=== PATIENT | male | born 1940 | race Caucasian/White ===

== ENCOUNTER → 2017-06-17 11:00 | Outpatient (CLI) | payer MEDICARE, OTHER ==
[2014-06-16 07:15] VITALS: BMI 28.5
[~2017-06-17 11:00] MED LIST: ASPIRIN EC81 M1 PO; BISOPROLOL-HCT1 EAC1 PO; GLIMEPIRIDE4 MG PO; JANUVIA100 MG PO; PLAVIX75 MG PO; THYROXINE PO
== END | disposition home or self-care (01) ==
LOC: D.CT 11:00
DX: Z87.891 Personal history of nicotine dependence (principal)

== ENCOUNTER → 2017-10-17 09:42 | Outpatient (CLI) | payer MEDICARE, OTHER ==
[2014-06-16 07:15] VITALS: BMI 28.5
== END | disposition home or self-care (01) ==
LOC: D.RT 09:42
DX: R93.8 Abnormal findings on diagnostic imaging of other specified body structures (principal); R06.09 Other forms of dyspnea; J44.9 Chronic obstructive pulmonary disease, unspecified

== ENCOUNTER → 2018-01-17 10:33 | Outpatient (CLI) | payer MEDICARE, OTHER ==
[2014-06-16 07:15] VITALS: BMI 28.5
[~2018-01-17 10:33] MED LIST changes: +HYDROCODON-ACE1 EAC7 PO; +TRAMADOL HCL E200 M1 PO
== END | disposition home or self-care (01) ==
LOC: D.CT 10:30
DX: R10.31 Right lower quadrant pain (principal)

== ENCOUNTER 2018-01-17 12:41 | Day surgery (SDC) | payer MEDICARE, OTHER ==
[~2018-01-17] VITALS: Ht 188 cm; Wt 95.9 kg
[~2018-01-17 12:41] MED LIST changes: -HYDROCODON-ACE1 EAC7 PO; -TRAMADOL HCL E200 M1 PO
[2018-01-17 13:30] VITALS: BP 173/101
[2018-01-17 13:39] LABS: BASOPHILS 0.1 % (0-2); EOSINOPHILS 0.1 % (0-7); HEMATOCRIT 38.3 % (42.0-54.0); HEMOGLOBIN 13.3 g/dL (13.5-17.5); IMMATURE GRANULOCYTES 0.3 % (0-5); LYMPHOCYTES 8.8 % (15-50); MCH 32.4 pg (26.0-34.0); MCHC 34.7 g/dL (31.0-37.0); MCV 93.2 fL (80.0-100.0); MEAN PLATELET VOLUME 9.7 fL (7.4-10.4); MONOCYTES 4.3 % (2-11); NEUTROPHILS 86.4 % (40-80); PLATELET COUNT 235 10x3/uL (130-400); RBC 4.11 10x6/uL (4.20-6.10); RDW 13.9 % (11.5-14.5); WBC 14.4 10x3/uL (4.8-10.8)
[2018-01-17 13:52] LABS: APTT 22.2 SECONDS (22.8-39.4); INR 1.09 (0.85-1.17); PROTIME 13.7 SECONDS (11.6-15.0)
[2018-01-17 13:54] LABS: ALBUMIN 3.6 g/dL (3.4-5.0); ANION GAP 14.6 mmol/L (8-16); BILIRUBIN - TOTAL 0.83 mg/dL (0.2-1.3); CALCIUM 8.8 mg/dL (8.5-10.1); CARBON DIOXIDE 23.1 mmol/L (21.0-32.0); CREATININE - SERUM 1.1 mg/dL (0.6-1.3); POTASSIUM - SERUM 3.7 mmol/L (3.5-5.1); PROTEIN - SERUM 7.5 g/dL (6.4-8.2)
[2018-01-17 14:47] VITALS: BP 156/92
[2018-01-17 15:12] VITALS: Ht 188 cm; Wt 95.9 kg
[2018-01-17] MEDS ORDERED: TRAMADOL HCL E200 M1 PO (16:03)
[2018-01-17] MEDS ORDERED: HYDROCODON-ACE1 EAC7 PO (20:27)
[2018-01-17 21:13] VITALS: BP 125/84
[2018-01-18 04:00] VITALS: BP 114/74
[2018-01-18 04:32] LABS: BASOPHILS 0.2 % (0-2); EOSINOPHILS 0.9 % (0-7); HEMATOCRIT 33.1 % (42.0-54.0); HEMOGLOBIN 11.1 g/dL (13.5-17.5); IMMATURE GRANULOCYTES 0.2 % (0-5); LYMPHOCYTES 19.8 % (15-50); MCH 31.8 pg (26.0-34.0); MCHC 33.5 g/dL (31.0-37.0); MCV 94.8 fL (80.0-100.0); MEAN PLATELET VOLUME 9.7 fL (7.4-10.4); MONOCYTES 5.4 % (2-11); NEUTROPHILS 73.5 % (40-80); PLATELET COUNT 198 10x3/uL (130-400); RBC 3.49 10x6/uL (4.20-6.10); RDW 14.3 % (11.5-14.5); WBC 11.2 10x3/uL (4.8-10.8)
[2018-01-18 04:44] LABS: CALC OSMOLALITY 278 mosm/kg (275-300); CALCIUM 7.4 mg/dL (8.5-10.1); CARBON DIOXIDE 24.3 mmol/L (21.0-32.0); CHLORIDE - SERUM 105 mmol/L (98-107); MAGNESIUM - SERUM 1.7 mg/dL (1.8-2.4); POTASSIUM - SERUM 3.8 mmol/L (3.5-5.1); SODIUM 138 mmol/L (136-145); UREA NITROGEN 12 mg/dL (7-18); eGFR NON AFRICAN AMERICAN 77 mL/min (90-120)
[2018-01-18 04:46] LABS: GLUCOSE 150 mg/dL (74-106)
== END 2018-01-18 10:23 | disposition home or self-care (01) ==
LOC: OBSVTIME → D.ER 12:41 → D.OPS 12:41 → OBSVTIME 14:23 → D.EDHOLD 14:23 → D.ER 14:23 → D.MS 14:23 → D.EDHOLD 14:29 → D.ER 14:52 → EDSTATUS 16:00 → D.MS 01-18 10:23 → D.OPS 01-18 10:23
PROVIDERS: Emergency Medicine; Surgery
DX: K35.80 Unspecified acute appendicitis (principal); E11.9 Type 2 diabetes mellitus without complications; Z79.84 Long term (current) use of oral hypoglycemic drugs; Z79.02 Long term (current) use of antithrombotics/antiplatelets; Z79.891 Long term (current) use of opiate analgesic; Z79.899 Other long term (current) drug therapy; Z01.812 Encounter for preprocedural laboratory examination

== ENCOUNTER → 2018-06-06 11:05 | Outpatient (CLI) | payer MEDICARE, OTHER ==
[2018-01-17 15:12] VITALS: BMI 27.1
[~2018-06-06 11:05] MED LIST changes: +HYDROCODON-ACE1 EAC7 PO; +TRAMADOL HCL E200 M1 PO
== END | disposition home or self-care (01) ==
LOC: D.CT 05-28 11:00
DX: R93.89 Abnormal findings on diagnostic imaging of other specified body structures (principal)

== ENCOUNTER 2018-07-23 06:32 | Outpatient (CLI) | payer MEDICARE, OTHER ==
[~2018-07-23] VITALS: Ht 188 cm; Wt 95.5 kg
[2018-07-23 07:20] LABS: BASOPHILS 0.4 % (0-2); EOSINOPHILS 4.5 % (0-7); HEMATOCRIT 39.6 % (42.0-54.0); HEMOGLOBIN 13.5 g/dL (13.5-17.5); IMMATURE GRANULOCYTES 0.3 % (0-5); LYMPHOCYTES 21.6 % (15-50); MCHC 34.1 g/dL (31.0-37.0); MCV 93.8 fL (80.0-100.0); MONOCYTES 7.2 % (2-11); RBC 4.22 10x6/uL (4.20-6.10); RDW 13.5 % (11.5-14.5); WBC 10.3 10x3/uL (4.8-10.8)
[2018-07-23 07:36] LABS: PLATELET COUNT 289 10x3/uL (130-400)
[2018-07-23 07:44] LABS: ANION GAP 15.7 mmol/L (8-16); CALCIUM 9.3 mg/dL (8.5-10.1); CARBON DIOXIDE 24.7 mmol/L (21.0-32.0); CREATININE - SERUM 1.2 mg/dL (0.6-1.3); POTASSIUM - SERUM 4.4 mmol/L (3.5-5.1)
[2018-07-23 08:00] LABS: APTT 24.2 SECONDS (22.8-39.4); INR 1.01 (0.85-1.17); PROTIME 12.8 SECONDS (11.6-15.0)
[2018-07-23] MEDS ORDERED: SYNTHROID137 MCG PO (08:09)
[2018-07-23 08:19] VITALS: BP 132/84; Ht 188 cm; Wt 95.5 kg
[2018-07-23] MEDS ORDERED: MULTI-DAY VITAM1 TAB PO (12:47)
[2018-07-23] MEDS ORDERED: GLUCOPHAGE500 MG PO (12:48)
[2018-07-23] MEDS ORDERED: GLUCOPHAGE1000 MG PO (12:48)
== END 2018-07-23 12:45 | disposition home or self-care (01) ==
LOC: D.SP 06:32 → D.CT 08:00 → D.SP 08:00 → D.CT 07-30 11:00
PROVIDERS: Anesthesiology; Radiology Diagnostic Radiology; ATTEND Internal Medicine Pulmonary Disease
DX: C34.12 Malignant neoplasm of upper lobe, left bronchus or lung (principal); Z01.812 Encounter for preprocedural laboratory examination

== ENCOUNTER 2018-07-24 09:50 | Day surgery (SDC) | payer MEDICARE, OTHER ==
[~2018-07-24] VITALS: Ht 188 cm; Wt 96.2 kg
[2018-07-24 06:16] VITALS: BP 120/74; Ht 188 cm; Wt 96.2 kg
[~2018-07-24 09:50] MED LIST changes: +GLUCOPHAGE1000 MG PO; +GLUCOPHAGE500 MG PO; +MULTI-DAY VITAM1 TAB PO; +SYNTHROID137 MCG PO
--- NOTE | 2018-07-24 10:12 | OP ---
PATIENT NAME: MARIA TERESA MCKEON JR MEDICAL RECORD: [id number] :41 LOCATION:D.OPS ADMISSION DATE: SURGEON: EDMUND PFEIFFER MD DATE OF OPERATION: 07/24/2018 SURGEON: Edmund Pfeiffer MD ANESTHESIA: TIVA by Reagan Muñoz CRNA. DIAGNOSIS: Elevated PSA of 4.74 on 05/26/2018. PROCEDURES: Cystoscopy, transrectal ultrasound, and prostate biopsy. FINDINGS: On cystoscopy, focal bulbar urethral stricture which was dilated with the scope. Nonobstructive lateral lobes of the prostate. Single ureteral orifices bilaterally with no bladder tumors. The transrectal ultrasound shows a 38.5-gram prostate size with internal prostatic stones. On digital rectal examination, the patient has a firm nodule in the left lateral prostate. SPECIMENS: Prostate biopsies. BLOOD LOSS: None. CLINICAL HISTORY: This is a 78-year-old male, who is being investigated for an elevated PSA of 4.74. He has minimal voiding symptoms, but since he is coming under anesthesia for a prostate biopsy, I will take advantage of the opportunity to perform cystoscopy to check on the prostatic anatomy urethrally. HE IS ALLERGIC TO COZAAR. 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 DESCRIPTION OF PROCEDURE: The patient was given IV sedation. He was then placed in the dorsal lithotomy position. Lidocaine jelly was inserted into the urethra. A 17-Lao cystoscope was used with a 30-degree lens for visualization. The penile urethra was clear until we hit the bulbar urethra. At that point, there was a focal urethral stricture. I managed to get past the stricture with the scope. The prostatic urethra is as described above. The bladder was then emptied through the scope and then the scope was removed. We then introduced the transrectal ultrasound probe. The prostate size was measured at 38.5 grams. Internal prostatic stones were seen. There is a focal nodule, which is visible in the left side. No hypoechoic lesions were seen. We then performed sextant biopsies with at least 3 cores from each sextant. Once we obtained all the cores, the procedure was terminated. I will see the patient in followup next week to review the pathology results with him. TRANSINT:[id number] Voice Confirmation ID: [id number] DOCUMENT ID: [id number] EDMUND PFEIFFER MD at 1012 CC: [id number] DICTATION DATE: 07/24/18818 SQUAD SERGEANT: 07/24/18 0954 [facility] 07/24/18 [facility] [address] [place] [address]
== END 2018-07-24 09:51 | disposition home or self-care (01) ==
LOC: D.OPS 09:50
PROVIDERS: ATTEND Urology
DX: C61 Malignant neoplasm of prostate (principal); Z01.812 Encounter for preprocedural laboratory examination

== ENCOUNTER → 2018-08-05 09:08 | Outpatient (CLI) | payer MEDICARE, OTHER ==
[2018-07-24 06:16] VITALS: BMI 27.2
== END | disposition home or self-care (01) ==
LOC: D.NM 09:08
PROVIDERS: ATTEND Internal Medicine Pulmonary Disease
DX: C61 Malignant neoplasm of prostate (principal); C34.90 Malignant neoplasm of unspecified part of unspecified bronchus or lung

== ENCOUNTER → 2018-08-11 15:13 | Outpatient (CLI) | payer MEDICARE, OTHER ==
[2018-07-24 06:16] VITALS: BMI 27.2
== END | disposition home or self-care (01) ==
LOC: D.MRI 15:13
PROVIDERS: ATTEND Internal Medicine Hematology & Oncology
DX: C34.91 Malignant neoplasm of unspecified part of right bronchus or lung (principal); C61 Malignant neoplasm of prostate

== ENCOUNTER → 2018-08-21 05:08 | Day surgery (SDC) | payer MEDICARE, OTHER ==
[~2018-08-21] VITALS: Ht 188 cm; Wt 97.7 kg
--- NOTE | ~2018-08-21 | OP ---
PATIENT NAME: MARIA TERESA MCKEON JR MEDICAL RECORD: [id number] :41 LOCATION:D.OPS ADMISSION DATE: SURGEON: CONSUELO PETER MD DATE OF OPERATION: 08/21/2018 PROCEDURE: EGD with biopsy, colonoscopy with biopsy, colonoscopy with polypectomy. HEEL BLACKER: Consuelo Peter MD SCOPE: Olympus video colonoscope and Olympus video gastroscope. MEDICATIONS: Per TIVA anesthesia. The patient received 500 mg of propofol for both procedures, O2 of 4 liters. INDICATION FOR THE PROCEDURE: The patient has had a CT-guided biopsy of a lung mass in the right upper lobe with the path report significant for adenocarcinoma. Additionally, he has had a new finding of prostate cancer. His CEA level is 88.9. His PSA is 6.7. The pathology on the lung mass was sent to [facility] and they feel that the lung mass special studies are indicative for a colon primary. The patient's last colonoscopy was in 2018, which was fairly unremarkable. We are repeating this test today looking for any evidence of colonic malignancy. EGD FINDINGS: Informed consent was given. The patient was made comfortable with the above medications. After reaching an adequate level of sedation by slow IV push, the patient was placed on his left side. The endoscope was then advanced under direct visualization through the posterior pharyngeal area and advanced to the distal esophagus. Only minimal inflammation was noted at the gastroesophageal junction. A nonstenotic Schatzki's ring was also seen and the patient has a very small hiatal hernia, which was noted on both direct and retroflex views. Biopsies were taken at the gastroesophageal junction. We then advanced the scope into the gastric area and immediately retroflexed, which revealed again the presence of the small hiatal hernia. At the junction of the gastric cardia to the distal esophagus on retroflex view some inflammation was appreciated and biopsies were obtained. No ulcers or erosions were noted. We then proceeded through the stomach body to the antral area where only minimal inflammation was appreciated. A biopsy was taken at the antral area looking for the presence of Helicobacter pylori. No ulcers or erosions were noted throughout the entire stomach nor were they seen in the distal esophagus. On entering the duodenal bulb, some mild inflammation was appreciated. Biopsies were taken. We then advanced the scope into the second portion of the duodenum where an area of raised inflammation was appreciated and biopsies were obtained. The scope was then withdrawn. IMPRESSION: 1. Mild inflammation in the distal esophageal area, biopsies taken. 2. Nonstenotic Schatzki's ring. 3. Small hiatal hernia. 4. Biopsies taken at the junction of the distal esophagus to the gastric cardia on retroflexed view of some mild inflammation with associated erythema and edema. OPERATIVE REPORT [id number] MARIA TERESA MCKEON SYED Jeong 5. Mild inflammation throughout the entire gastric mucosa, which was examined and no ulcers or erosions seen. Biopsy taken at the antral area looking for the presence of Helicobacter pylori. 6. Mild inflammation in the duodenal bulb, biopsied. No ulcers, no erosions. 7. Raised nodule in the second part of the duodenum, both photo documentation and biopsy obtained. Second part of the duodenum mucosa with mild inflammation only. COLONOSCOPY WITH BIOPSY, COLONOSCOPY WITH POLYPECTOMY: After completion of the EGD, the patient was again positioned on his left side and medications were adjusted for his comfort and safety. The colonoscope was then advanced to the cecum where the ileocecal valve and appendiceal orifice were identified. It should be mentioned that the prep was not very effective. 1. The patient had copious amount of stool throughout the entire colon. This was most pronounced; however, on the left side of the colon and much attention was spent washing the colon mucosa. 2. The cecum with ileocecal valve and appendiceal orifice as well as the terminal ileum was identified. The small bowel was intubated and the terminal ileum had copious amount of nodularity noted. This was most likely a normal finding, but biopsies were obtained to be thorough. The appendiceal orifice had some raised tissue. It should be noted that the patient had an appendectomy in [address] LUIS Cruz due to an acute appendicitis. We took a small biopsy in the appendiceal orifice of some raised mildly inflamed inflammation. The ileocecal valve in this area had one small 0.5 cm polyp, which was removed with hot biopsy forcep technique. We then explored the ascending colon, which had fairly normal tissue throughout and then proceeded to the transverse colon where at 75 cm, a very small polyp 0.25 cm was appreciated and this was removed with hot biopsy forceps technique. The scope then was further withdrawn into the descending colon where fairly normal tissue was noted. In the sigmoid colon, some mild inflammation was noted and biopsies were obtained. At the distal sigmoid area, a polyp was noted that was 0.5 cm in size and this was carefully removed with hot biopsy forcep technique and sent to pathology for review. This was at 15 cm within the colon. Within the rectum, 2 small polyps, both 0.5 cm in size, were seen and also removed with hot biopsy forcep technique. The patient had mild diverticulosis within the left side of the colon and no evidence of diverticulitis was appreciated. On retroflexion, the patient was seen to have both internal hemorrhoids and on final withdrawal of the scope, external hemorrhoids were seen. The patient tells me that he performed a couple enemas the morning of the procedure, prior to coming to the hospital and he had areas of marked inflammation and congestion at 15 cm within the colon in the distal sigmoid area and again within the rectum. Photodocumentation was obtained. The small biopsy that was taken in the distal sigmoid area was at the same area of inflammation. The scope was then withdrawn. IMPRESSION: 1. Colonoscope advanced through the rectum and we proceeded to the cecum where the ileocecal valve and appendiceal orifice were identified. Photo documentation was obtained. The small bowel was intubated and biopsies were taken of some nodularity in this area. 2. Small polyp on the ileocecal valve, 0.5 cm in size, removed with hot biopsy OPERATIVE REPORT [id number] MARIA TERESA MCKEON forcep technique. 3. Minimal inflammation within the appendiceal orifice, biopsied. 4. Normal ascending colon. 5. Transverse colon with the presence of a 0.5 cm polyp at 75 cm removed with hot biopsy forcep technique. 6. Fairly normal tissue within the descending colon. 7. Inflammation within the distal sigmoid area, biopsy obtained. 8. Polyp in the distal sigmoid area, 0.5 cm in size and at 15 cm, removed with hot biopsy forcep technique. 9. Two rectal polyps removed with hot biopsy forceps technique, 0.5 cm in size. 10. Inflammation noted within the rectum due to earlier treatment by the patient of enemas in order to help to cleanse the colonic mucosa. This was photographed. This was noted on the external hemorrhoids and minimally within the internal hemorrhoids. 11. Very mild internal hemorrhoids. 12. Mild external hemorrhoids. 13. Mild left-sided diverticulosis without diverticulitis. PLAN: 1. No aspirin, no anti-inflammatory drugs for 14 days. 2. The patient is to maintain a high fiber diet. 3. We will check all the path, which was sent to pathology for review. 4. Probiotics. 5. We will place the patient on medications for his inflammation found on the EGD to include famotidine 20 mg p.o. b.i.d. 6. We will also order a small bowel follow-through to further complete the workup looking for any presence of a significant inflammation or tumor as we are unable to thoroughly examine the small bowel with endoscopy. TRANSINT:[id number] Voice Confirmation ID: [id number] DOCUMENT ID: [id number] CONSUELO PETER MD CC: HIREN SEVILLA MD, TAYLOR EDMONDS, SHIRA GARCIAS MD and JESSICA PFEIFFER [id number] DICTATION DATE: 08/22/18 1248 CAKE BATTER MIXER: 08/22/18 1337 [facility] 08/21/18 [place] [id number] [place] [address]
[2018-08-21 05:57] LABS: HEMATOCRIT 35.8 % (42.0-54.0); HEMOGLOBIN 12.2 g/dL (13.5-17.5); MCH 31.5 pg (26.0-34.0); MCHC 34.1 g/dL (31.0-37.0); MCV 92.5 fL (80.0-100.0); MEAN PLATELET VOLUME 9.3 fL (7.4-10.4); RBC 3.87 10x6/uL (4.20-6.10); RDW 13.4 % (11.5-14.5); WBC 11.4 10x3/uL (4.8-10.8)
[2018-08-21 06:04] LABS: CALC OSMOLALITY 271 mosm/kg (275-300); CALCIUM 8.8 mg/dL (8.5-10.1); CARBON DIOXIDE 22.2 mmol/L (21.0-32.0); CHLORIDE - SERUM 102 mmol/L (98-107); SODIUM 136 mmol/L (136-145); UREA NITROGEN 8 mg/dL (7-18); eGFR NON AFRICAN AMERICAN 77 mL/min (90-120)
[2018-08-21 06:05] LABS: GLUCOSE 134 mg/dL (74-106)
[2018-08-21 06:06] LABS: APTT 25.7 SECONDS (22.8-39.4); INR 1.13 (0.85-1.17)
[2018-08-21 06:09] VITALS: BP 117/70; Ht 188 cm; Wt 97.7 kg
== END | disposition home or self-care (01) ==
LOC: D.OPS 05:08
PROVIDERS: Anesthesiology; ATTEND Internal Medicine Gastroenterology
DX: Z12.11 Encounter for screening for malignant neoplasm of colon (principal); K22.2 Esophageal obstruction; K44.9 Diaphragmatic hernia without obstruction or gangrene; K20.9 Esophagitis, unspecified; K29.70 Gastritis, unspecified, without bleeding; K29.80 Duodenitis without bleeding; K62.1 Rectal polyp; K64.8 Other hemorrhoids; K64.4 Residual hemorrhoidal skin tags; K57.30 Diverticulosis of large intestine without perforation or abscess without bleeding; D12.3 Benign neoplasm of transverse colon; K63.5 Polyp of colon; C61 Malignant neoplasm of prostate; C34.11 Malignant neoplasm of upper lobe, right bronchus or lung; Z01.812 Encounter for preprocedural laboratory examination

== ENCOUNTER → 2018-08-22 07:33 | Outpatient (CLI) | payer MEDICARE, OTHER ==
[2018-08-21 06:09] VITALS: BMI 27.6
== END | disposition home or self-care (01) ==
LOC: D.RAD 07:33
PROVIDERS: ATTEND Internal Medicine Gastroenterology
DX: C34.90 Malignant neoplasm of unspecified part of unspecified bronchus or lung (principal); C79.82 Secondary malignant neoplasm of genital organs; R74.8 Abnormal levels of other serum enzymes

== ENCOUNTER → 2018-08-25 14:29 | Outpatient (CLI) | payer MEDICARE, OTHER ==
[2018-08-21 06:09] VITALS: BMI 27.6
== END | disposition home or self-care (01) ==
LOC: D.HCCARDIO 14:29
PROVIDERS: ATTEND Internal Medicine Interventional Cardiology
DX: R06.02 Shortness of breath (principal)

== ENCOUNTER → 2018-09-04 08:37 | Outpatient (CLI) | payer MEDICARE, OTHER ==
[2018-08-21 06:09] VITALS: BMI 27.6
--- NOTE | ~2018-09-04 | ST ---
PATIENT:MARIA TERESA MCKEON JR MEDICAL RECORD: [id number] SEX: M LOCATION:[facility] ORDER #: ADMISSION DATE: 09/04/18 AGE OF PATIENT: 78 REFERRING PHYSICIAN: INTERPRETING PHYSICIAN: ANA LAURA VIERA MD DATE OF SERVICE: 09/04/2018 PROCEDURE: Nuclear stress test. INDICATION: Angina and coronary artery disease, shortness of breath, abnormal ECG. The patient was exercised on standard Lexiscan protocol with 26 mCi of sestamibi injected at peak stress, 8 mCi were used previously for rest images. FINDINGS: Gated SPECT was unable to be performed secondary to multiple PVCs and rejected beats. SPECT imaging Cardiolite was used as myocardial perfusion agent. There is homogeneous uptake throughout all segments at rest and stress with no evidence of inducible ischemia or previous infarction. OVERALL IMPRESSION: 1. This is a normal nuclear stress test with no evidence of inducible ischemia or previous infarction. 2. In this patient with ongoing symptomatology, the current scan does not suggest the presence of hemodynamically significant coronary artery disease. Evaluate noncardiac etiology of chest pain. TRANSINT:[id number] Voice Confirmation ID: [id number] DOCUMENT ID: [id number] ANA LAURA VIERA MD CC: TAYLOR EDMONDS [id number] DICTATION DATE: 09/05/18 1027 JOB COACH: 09/06/18 0332 DEP CLI 09/04/18 [facility] [address] [place] [address]
== END | disposition home or self-care (01) ==
LOC: D.HCCARDIO 08:37
PROVIDERS: ATTEND Internal Medicine Interventional Cardiology
DX: I25.10 Atherosclerotic heart disease of native coronary artery without angina pectoris (principal)

== ENCOUNTER 2018-09-16 08:07 | Outpatient (CLI) | payer MEDICARE, OTHER | END 2018-09-16 12:22 | disposition home or self-care (01) | LOC: D.CATH 08:07 | DX: I48.91 Unspecified atrial fibrillation (principal); Z01.812 Encounter for preprocedural laboratory examination ==

== ENCOUNTER 2018-09-19 09:59 | Day surgery (SDC) | payer MEDICARE, OTHER ==
[~2018-09-19] VITALS: Ht 188 cm; Wt 93.4 kg
--- NOTE | ~2018-09-19 | OP ---
PATIENT NAME: MARIA TERESA MCKEON JR MEDICAL RECORD: [id number] :41 LOCATION:D.OPS ADMISSION DATE: SURGEON: MARSHALL COOPER MD DATE OF OPERATION: 09/18/2018 He is an outpatient, operated and dictated today on 09/18/2018. REFERRED BY: Dr. Garcias. PREOPERATIVE DIAGNOSIS: Carcinoma of the lung, uncertain etiology or origin. POSTOPERATIVE DIAGNOSIS: Carcinoma of the lung, uncertain etiology or origin. OPERATION PERFORMED: Implantation of a Bard MRI PowerPort via the right internal jugular vein under ultrasound as well as fluoroscopic guidance. SURGEON: Marshall Cooper MD ANESTHESIA: Local 1% lidocaine and 0.25% Marcaine without epinephrine. TIVA per APPLICATION SUPPORT LEAD. DESCRIPTION OF PROCEDURE: With the patient in supine position, he was prepped and draped in sterile manner. He was sedated and monitored by APPLICATION SUPPORT LEAD. The right internal jugular vein was located with ultrasound and the skin and subcutaneous tissues overlying it at the base of the neck infiltrated with lidocaine. A small transverse incision was made, and under ultrasound guidance, a micropuncture needle and guidewire were inserted via the jugular vein. A wire exchange was performed and then a dilator peel-away sheath was inserted under fluoroscopy, its tip reaching into the right atrium. I then infiltrated with local anesthetic into the skin and subcutaneous tissues of a site below the medial clavicle. I made a transverse incision and with electrocautery and blunt dissection developed a port pocket. The MRI port catheter was then inserted through the peel-away sheath and the peel-away sheath removed. Its tip was positioned in the mid right atrium, catheter was then pulled through a subcutaneous tunnel down to the port pocket where again fluoroscopy was used to check the length and position of the catheter. It was then shortened and attached to the plastic Bard MRI port that was placed in a pocket and sutured to the pectoralis fascia with 2 interrupted simple 2-0 Prolene sutures. The port was accessed and aspirated and free return of blood confirmed. It was then flushed with saline and the Waldron needle removed. The wound was closed with interrupted inverted 3-0 Vicryl and running intracuticular 4-0 Stratafix. The cervical incision was closed with a single interrupted inverted 3-0 Vicryl and Dermabond glue. It was dressed with Maxorb AG and Tegaderm, and Cavilon skin prep. The port pocket incision was closed in a similar manner and dressed with Maxorb AG and Tegaderm. I then accessed the port transcutaneously. Again, blood was returned on aspiration. The port was then flushed again with saline and then heparin locked with heparin 500 units per cc. The Waldron needle was removed and a standard central venous line dressing applied, leaving the catheter accessed. The patient was awakened and returned to the outpatient department. PLAN: The patient will go home today and continue with his home diet, medications and activities. He will leave the port accessed and keep it dry and clean and go to Dr. Garcias on Saturday for chemotherapy. Our plan is to see him back in my office in 7-10 days. There was no blood loss. All sponges, OPERATIVE REPORT [id number] MARIA TERESA MCKEON instruments, and needles were accounted for. No drain was used and no surgical specimen submitted for histopathology. TRANSINT:[id number] Voice Confirmation ID: [id number] DOCUMENT ID: [id number] MARSHALL COOPER MD CC: SHIRA GARCIAS MD [id number] DICTATION DATE: 09/19/18 141 REMOTE INPATIENT CODER: 09/19/181909 [facility] 09/19/18 [facility] [address] [place] [address]
[~2018-09-19 09:59] MED LIST changes: +BETAPACE 120 M120 MG PO; +BICALUTAMIDE PO; +XARELTO20 MG PO
[2018-09-19 10:30] LABS: BASOPHILS 0.3 % (0-2); EOSINOPHILS 2.3 % (0-7); HEMATOCRIT 35.3 % (42.0-54.0); HEMOGLOBIN 12.1 g/dL (13.5-17.5); IMMATURE GRANULOCYTES 0.3 % (0-5); LYMPHOCYTES 20.5 % (15-50); MCH 31.7 pg (26.0-34.0); MCHC 34.3 g/dL (31.0-37.0); MCV 92.4 fL (80.0-100.0); MEAN PLATELET VOLUME 9.6 fL (7.4-10.4); NEUTROPHILS 68.6 % (40-80); PLATELET COUNT 249 10x3/uL (130-400); RBC 3.82 10x6/uL (4.20-6.10); RDW 13.7 % (11.5-14.5); WBC 10.7 10x3/uL (4.8-10.8)
[2018-09-19 10:34] LABS: CALC OSMOLALITY 278 mosm/kg (275-300); CALCIUM 9.7 mg/dL (8.5-10.1); CARBON DIOXIDE 25.8 mmol/L (21.0-32.0); CHLORIDE - SERUM 103 mmol/L (98-107); GLUCOSE 140 mg/dL (74-106); INR 1.07 (0.85-1.17); POTASSIUM - SERUM 4.7 mmol/L (3.5-5.1); PROTIME 13.4 SECONDS (11.6-15.0); SODIUM 138 mmol/L (136-145); UREA NITROGEN 14 mg/dL (7-18); eGFR NON AFRICAN AMERICAN 77 mL/min (90-120)
[2018-09-19 10:48] VITALS: BP 137/87; Ht 188 cm; Wt 93.4 kg
== END 2018-09-19 15:00 | disposition home or self-care (01) ==
LOC: D.OPS 09:59
PROVIDERS: ATTEND Surgery
DX: C34.90 Malignant neoplasm of unspecified part of unspecified bronchus or lung (principal)

== ENCOUNTER → 2018-11-17 08:17 | Outpatient (CLI) | payer MEDICARE, OTHER ==
[2018-09-19 10:48] VITALS: BMI 26.5
[~2018-11-17 08:17] MED LIST changes: +LANOXIN125 MCG PO; +PHENERGAN25 M1 PO
== END | disposition home or self-care (01) ==
LOC: D.CT 08:17
PROVIDERS: ATTEND Internal Medicine Hematology & Oncology
DX: C34.91 Malignant neoplasm of unspecified part of right bronchus or lung (principal)

== ENCOUNTER 2018-11-18 12:14 | Observation (INO) | payer MEDICARE, OTHER ==
[~2018-11-18] VITALS: Ht 188 cm; Wt 92.7 kg
--- NOTE | ~2018-11-18 | HEMODYNAMI ---
PATIENT:MARIA TEERSA MCKEON JR MEDICAL RECORD: [id number] : 42 [id number] ADMISSION DATE: 11/18/18 Generatedon:11/18/201817:30 Patient name: MARIA TERESA MCKEON Patient #: [id number] SSN: D OB: 1940 Date of study: 11/18/2018 Page: Of Hemodynamic Procedure Report Patient Data Patient Demographics Procedure consent was obtained First Name: MARIA TERESA Gender: Male Last Name: LINDA Suffix: Jr Ty Initial: SYED : 1940 Patient #: [id number] Age: 78 year(s) Race: Additional ID: [id number] Contact details [address]: [address] [place] [address] State: [place] City: [place] Zip code: [address] Past Medical History Allergies Allergen Reaction Date Comments Reported Other allergy 09/16/2018 lisinopril Other allergy 11/18/2018 LISINOPRIL, LOSARTAN Admission Admission Data Admission Date: 11/18/2018 Admission Time: 17:13 Room #: D.2126 Procedure Procedure Types Cath Procedure Diagnostic Procedure PPM/ICD PPM Dual Implant Sedation Charges Moderate Sedation up to 30 minutes Procedure Description Procedure Date Procedure Date: 11/18/2018 Procedure Start Time: 17:02 Procedure End Time: 17:28 Procedure Staff Name Function Mir Otto MD Performing Physician Sony Cuadra MD Assisting physician Elie Hinds RT Monitor Valente Laura RT Monitor Izabela Knox RN Nurse Tiara Santos RT Scrub Jose David Burnett RN Nurse Felton Zhao RN Nurse Procedure Data Cath Procedure Fluoroscopy Diagnostic fluoroscopy Total fluoroscopy Time: 1.4 time: 1.4 min min Diagnostic fluoroscopy Total fluoroscopy dose: dose: 44.68 mGy 44.68 mGy Contrast Material Contrast Material Type Amount (ml) Isovue 300 0 Estimated blood loss: 5 ml Procedure Complications No complications Procedure Medications Medication Administration Route Dosage 0.9% NaCl I.V. 100 ml/hr Oxygen etCO2 Nasal cannula 2 l/min Lidocaine 1% added to field 20 Ancef (1Gm/50ml NS) I.V.P.B 1 g Ancef Irrigation Topical 1 g (1gm/500ml NS) Versed I.V. 2 mg Fentanyl I.V. 100 mcg Versed I.V. 1 mg Fentanyl I.V. 50 mcg Hemodynamics Rest Heart Rate: 120 (bpm) Snapshots Pre Cath Intra NCS Post Cath Vital Signs Time Heart Resp SPO2 etCO2 NIBP (mmHg) Rhythm Pain Sedation Rate (ipm) (%) (mmHg) Status Level (bpm) 16:55:12 106 16 94 26.1 130/81(96) A-Flutter 0 (11) 10(A) , No pain 16:59:26 118 18 93 16.4 125/79(86) A-Flutter 0 (11) 10(A) , No pain 17:03:32 119 15 97 22.4 133/88(98) A-Flutter 0 (11) 10(A) , No pain 17:07:42 116 11 95 29.1 112/79(91) A-Flutter 0 (11) 9(A) , No pain 17:11:48 117 16 92 26.1 121/79(100) A-Flutter 0 (11) 9(A) , No pain 17:15:56 115 25 96 32.1 126/84(98) A-Flutter 0 (11) 10(A) , No pain 17:20:06 66 16 95 18.6 119/80(97) A-Flutter 0 (11) 10(A) , No pain 17:24:46 103 14 95 14.9 123/76(99) A-Flutter 0 (11) 10(A) , No pain Medications Time Medication Route Dose Verified Delivered Reason Notes Effectiv eness by by 16:53:51 0.9% NaCl I.V. 100 Izabela Izabela Per ml/hr Abilio Knox physician RN RN 16:54:29 Oxygen etCO2 2 Felton Felton for low 02 Nasal l/min Cece Zhao sats cannula RN RN 16:54:40 Lidocaine added 20ml Felton Felton for local 1% to vial Cece Zhao anesthetic field RN RN 16:54:58 Ancef I.V.P.B 1 g Felton Felton Per (1Gm/50ml Lorigan Lorigan physician NS) RN RN 16:55:16 Ancef Topical 1 g Felton Felton used for Irrigation Lorigan Lorigan procedure (1gm/500ml RN RN NS) 16:58:22 Versed I.V. 2 mg Felton Felton for Lorigan Lorigan sedation RN RN 16:58:30 Fentanyl I.V. 100 Felton Felton for mcg Lorigan Lorigan sedation RN RN 17:03:40 Versed I.V. 1 mg Felton Felton for Lorigan Lorigan sedation RN RN 17:05:43 Fentanyl I.V. 50 Felton Felton for mcg Lorigan Lorigan sedation RN division service manager Log Time Note 16:15:22 Tiara Santos RT(R) sent for patient. Start room use. 16:32:23 Time tracking: Regular hours (M-F 7:00 - 5:00) 16:32:41 Plan of Care:Hemodynamics will remain stable., Cardiac rhythm will remain stable., Comfort level will be maintained., Respiratory function will remain adequate., Patient/ family verbilizes understanding of procedure., Procedure tolerated without complication., Recovers from procedure without complications.. 16:33:00 Use device set CLARA PPM 16:33:02 Cautery Tip Car Salter opened to sterile field. 16:33:03 Cautery Pushbutton Pencil opened to sterile field. 16:33:03 Mepilex Dressing ([id number]) opened to sterile field. 16:33:05 Immobilizer Large opened to sterile field. 16:33:06 2-0 Ticron Multipack ([id number]) opened to sterile field. 16:33:06 3-0 Vicryl Single Pack [id number] opened to sterile field. 16:33:07 5-0 Monocryl PS2 [id number] opened to sterile field. 16:35:41 Medtronic 4074-52 PPM Lead opened to sterile field. 16:35:41 Medtronic 4574-45 PPM Lead opened to sterile field. 16:35:[address] Generator [id number] opened to sterile field. 16:40:53 Patient received from Pre/Post Procedure Room to [facility] 3 Alert and oriented. Tansferred to table in Supine position. 16:40:56 Signed procedure consent form obtained from patient. 16:40:57 Warm blankets applied, and lyle hugger turned on for patient comfort. 16:40:57 Correct patient and procedure confirmed by team. 16:40:58 ECG and BP/O2 sat monitors applied to patient. 16:53:51 0.9% NaCl 100 ml/hr I.V. was administered by Izabela Knox RN; Per physician; 16:54:05 Vital chart was started 16:54:09 Baseline sample Acquired. 16:54:14 Rhythm: atrial flutter 16:54:15 Full Disclosure recording started 16:54:23 H&P Date Dictated: 11/12/2018 Within 30 days and on chart., H&P Addendum completed by physician on day of procedure. (MUST COMPLETE FOR ALL OUTPATIENTS). 16:54:24 Pre-procedure instructions explained to patient. 16:54:25 Pre-op teaching completed and patient verbalized understanding. 16:54:27 Family in patients room. 16:54:29 Oxygen 2 l/min etCO2 Nasal cannula was administered by Felton Zhao RN; for low 02 sats; 16:54:30 Patient NPO since Breakfast. 16:54:40 Lidocaine 1% 20ml vial added to field was administered by Felton Zhao RN; for local anesthetic; 16:54:41 Patient allergic to Other allergyLISINOPRIL, LOSARTAN 16:54:43 Is the patient allergic to Iodine/contrast media? No. 16:54:46 Is patient on blood thinner?No 16:54:47 Patient diabetic? No. 16:54:50 Previous problem with sedation/anesthesia? No ? 16:54:51 Snore? Yes 16:54:52 Sleep apnea? Yes 16:54:52 Deviated septum? No 16:54:53 Opens mouth fully? Yes 16:54:54 Sticks out tongue? Yes 16:54:55 Airway obstruction? No ? 16:54:57 Dentures? No ? 16:54:58 Ancef (1Gm/50ml NS) 1 g I.V.P.B was administered by Felton Zhao RN; Per physician; 16:55:15 IV patent on arrival in left forearm with 0.9% NaCl at [facility]. 16:55:16 Ancef Irrigation (1gm/500ml NS) 1 g Topical was administered by Felton Zhao RN; used for procedure; 16:55:17 Lab results completed and on chart. 16:55:21 Left chest area was prepped with chlora-prep and draped in sterile fashion 16:55:23 Alarms reviewed by R. N. 16:55:24 Sharps counted by scrub and verified by R.N. 16:55:34 [employer]tronic inbound call center representative ANNETTE BENAVIDEZ present for procedure. 16:55:50 Pre sharps counted by scrub and verified by RN: Sutures: 7; Sponges: 5; Stick needles: 2; Skin needles: 2; Blade: 1; Cautery: 1 16:55:52 Grounding pad site Left thigh. 16:55:53 Grounding pad site free from injury. 16:57:00 Physician arrived 16:57:01 --------ALL STOP TIME OUT------ 16:57:01 Final Timeout: patient, procedure, and site verified with staff and physician. All members of the team are in agreement. 16:57:06 Left chest site verified by team. 16:57:13 Fire Safety Assessment: A--An alcohol-based skin anteseptic being used preoperatively., B--The operative or invasive procedure is being performed above the xiphoid process or in the oropharynx., C--Open oxygen or nitrous oxide is being used. 16:57:15 Physical assessment completed. ASA score P 2 - A patient with mild systemic disease as per Mir Otto MD. 16:57:22 Sedation plan: IV Moderate Sedation Medication:Versed, Fentanyl 16:58:22 Versed 2 mg I.V. was administered by Felton Zhao RN; for sedation; 16:58:30 Fentanyl 100 mcg I.V. was administered by Felton Zhao RN; for sedation; 17:00:52 Procedure started. 17:02:13 Lidocaine 1% was administered to left subclavicular area by Mir Otto MD . 17:02:19 Incision made to left subclavicular area. 17:03:40 Versed 1 mg I.V. was administered by Felton Zhao RN; for sedation; 17:05:21 Generator pocket made/opened. 17:05:27 Left subclavian vein accessed with 7Fr Peel Away Sheath. 17:05:43 Fentanyl 50 mcg I.V. was administered by Felton Zhao RN; for sedation; 17:06:36 Left subclavian vein accessed with 7Fr Peel Away Sheath. 17:06:39 Ventricular lead inserted and advanced. 17:08:14 Atrial lead inserted and advanced. 17:10:47 Ventricular lead positioned. 17:10:52 Ventricular lead tested. 17:13:30 Atrial lead positioned. 17:13:33 Atrial lead tested. 17:13:39 Atrial lead attachment was completed with 2-0 ticron. 17:13:42 Ventricular lead attachment was completed with 2-0 ticron. 17:13:46 PPM Dual was attached to lead(s) and inserted into pocket. 17:13:58 Generator was sutured in place with 2-0 ticron. 17:14:01 Device pocket was irrigated with Ancef. 17:17:56 Subcutaneous closure was completed with 3-0 vicryl plus. 17:19:38 Parameters-- Generator: Mode: AAIR<=>DDDR. Lower Rate: 60bpm. Upper Rate: 110bpm. 17:20:04 Parameters--Ventricular P/R Wave: 8.3mV. Current: 0mA; Threshold: 0.25V; Impedence: 1254OHMS. 17:20:26 Parameters--Atrial P/R Wave: 2.5mV. Current: 0mA; Threshold: FLUTTERV; Impedence: 494OHMS. 17:20:46 Skin closure was completed with 5-0 monocryl. 17:20:51 Lt Chest incision was dressed with Mepilex dressing. 17:26:29 Procedure ended.(Physican Out) 17:26:35 Fluoroscopy time 01.40 minutes. 17:26:39 Fluoroscopy dose: 44.68 mGy 17:26:39 Flurop Dose total: 44.68 17:27:07 Dose Area Product 550.44 mGy/cm. 17:27:10 Contrast amount:Isovue 300 0ml. 17:27:18 Post left subclavian vein:stable, soft, clean and dry 17:27:19 Post Procedure Pulses reassessed and unchanged 17:27:22 Post-procedure physical assessment completed. ASA score P 2 - A patient with mild systemic disease as per Mir Otto MD. 17:27:30 Post procedure rhythm: unchanged. 17:27:34 Estimated blood loss: 5 ml 17:27:36 Post procedure instruction explained to patient.Patient verbalizes understanding. 17:27:36 Patient needs reinforcement of post procedure teaching. 17:28:08 Procedure type changed to Cath procedure, Diagnostic procedure, PPM/ICD, PPM Dual Implant, Sedation Charges, Moderate Sedation up to 30 minutes 17:28:19 Procedure and supply charges have been captured, reviewed, submitted and are correct. 17:28:21 Procedure Complication : No complications 17:28:23 Vital chart was stopped 17:28:23 See physician's report for complete and final results. 17:28:26 Report given to PCU. 17:28:33 Patient transfered to PCU with Stretcher. 17:28:35 Procedure ended. 17:28:35 Full Disclosure recording stopped 17:28:42 End room use (Document Last) Device Usage Item Name Manufacture Quantity Catalog Hospital Part Current Minima l Lot# / Number Charge Number Stock Stock Serial# Code Cautery Tip Microtek 1 [id number] 227109 [id number] 5 [employer] Cautery Microtek 1 [id number] 730963 33684 722978 5 [employer] Pencil Mepilex Cardinal 1 841145 547945 437174 242956 5 Dressing Health (956408) Immobilizer Cardinal 1 [id number] 344608 914455 446467 5 Large Health 2-0 Ticron Ethicon 4 [id number] 409067 93671 265029 5 Multipack ([id number]) 3-0 Vicryl Ethicon 1 [id number] 108356 289496 034262 5 Single Pack [id number] 5-0 Monocryl Ethicon 1 [id number] 105276 230074 749077 5 PS2 Y495G Medtronic Medtronic 1 4074-52 667743 695110 697057 5 [id number] 4074-52 PPM EXP Lead 02-27-20 Medtronic Medtronic 1 4574-45 202528 026750 490628 5 [id number] 4574-45 PPM EXP Lead 02-22-20 Medtronic Medtronic 1 [id number] 300842 [id number] 499882 [id number] EXP Generator 02-27-20 [id number] Signature Audit [place] Stage Time Signature Unsigned Intra-Procedure 11/18/2018 Valente Laura 5:30:46 PM RT(R) Signatures Performing Physician : Signature : Mir Clarita MD Date : Time : Monitor : Elie Guzman RT Signature : Date : Time : Monitor : Valente Laura RT Signature : Date : Time : Nurse : Izabela Abilio RN Signature : Date : Time : Nurse : Jose David Burnett RN Signature : Date : Time : Nurse : Felton Lorigan Signature : RN Date : Time : [facility] [address] [place] [address]
[~2018-11-18 12:14] MED LIST changes: -LANOXIN125 MCG PO; -PHENERGAN25 M1 PO
[2018-11-18] MEDS ORDERED: LANOXIN125 MCG PO (12:31)
[2018-11-18] MEDS ORDERED: PHENERGAN25 M1 PO (12:32)
[2018-11-18 12:58] VITALS: BP 124/77; BMI 26.2
[2018-11-18 13:06] LABS: HEMOGLOBIN 9.1 g/dL (13.5-17.5); MCH 32.5 pg (26.0-34.0); MCV 92.9 fL (80.0-100.0); MEAN PLATELET VOLUME 9.7 fL (7.4-10.4); RBC 2.8 10x6/uL (4.20-6.10); RDW 17.4 % (11.5-14.5); WBC 8.2 10x3/uL (4.8-10.8)
[2018-11-18 13:11] LABS: CALC OSMOLALITY 273 mosm/kg (275-300); CALCIUM 8.7 mg/dL (8.5-10.1); CARBON DIOXIDE 24.3 mmol/L (21.0-32.0); CHLORIDE - SERUM 98 mmol/L (98-107); CREATININE - SERUM 0.9 mg/dL (0.6-1.3); GLUCOSE 301 mg/dL (74-106); POTASSIUM - SERUM 3.8 mmol/L (3.5-5.1); SODIUM 131 mmol/L (136-145); UREA NITROGEN 12 mg/dL (7-18); eGFR NON AFRICAN AMERICAN 87 mL/min (90-120)
[2018-11-18 13:18] LABS: APTT 23.5 SECONDS (22.8-39.4)
[2018-11-18 13:22] LABS: INR 1.08 (0.85-1.17); PROTIME 13.5 SECONDS (11.6-15.0)
--- NOTE | 2018-11-18 17:45 | NUR ---
RECEIVED PATIENT FROM THE SUPERVISOR GROUNDS VIA BED AND ADMITTED TO ROOM 2126 AT THIS TIME. PATIENT ALERT/ORIENTED. RESP EVEN AND UNLABORED. SLING TO LEFT ARM. PRESSURE DRESSING TO LEFT CHEST A PRECAUTIONARY PER . PATIENT HAD NO BLEEDING BUT SWELLING WAS NOTED TO PACEMAKE SITE S/P PROCEDURE. CALL LIGHT WITHIN REACH. NO DISTRESS.
--- NOTE | 2018-11-18 19:12 | NUR ---
DINNER TRAY TAKEN TO PTS ROOM ALONG WITH DIET SODA.
[2018-11-18 19:13] VITALS: BP 97/64; Ht 188 cm; Wt 92.7 kg
--- NOTE | 2018-11-18 19:33 | NUR ---
ASSESSMENT COMPLETE, PT A&O. RESPERATIONS EVEN ON RA. IV TO LEFT ARM WITH NS INFUSING AT 100 CC/HR. DRSG TO LEFT UPPER CHEST FROM PACEMAKER INSERTION DONE EARLIER TODAY. LEFT ARM IN SLING. PT DENIES PAIN OR NEEDS. BED LOW, CL IN REACH, FAMILY AT BED SIDE.
[2018-11-18 20:00] VITALS: BP 102/57
[2018-11-19 01:05] VITALS: BP 126/63
[2018-11-19 05:36] VITALS: BP 113/67
[2018-11-19 07:05] LABS: CALCIUM 8.9 mg/dL (8.5-10.1); CARBON DIOXIDE 23.2 mmol/L (21.0-32.0); CHLORIDE - SERUM 102 mmol/L (98-107); CREATININE - SERUM 0.8 mg/dL (0.6-1.3); MAGNESIUM - SERUM 1.1 mg/dL (1.8-2.4); PHOSPHOROUS 2.9 mg/dL (2.5-4.9); SODIUM 136 mmol/L (136-145); eGFR NON AFRICAN AMERICAN > 90 mL/min (90-120)
[2018-11-19 07:10] LABS: CALC OSMOLALITY 277 mosm/kg (275-300); GLUCOSE 251 mg/dL (74-106); UREA NITROGEN 7 mg/dL (7-18)
--- NOTE | 2018-11-19 07:48 | NUR ---
RECIVED REPORT. PATIENT WANTS TO KNOW IF HE WILL BE DISCHARGED TODAY. WAITING AND WATCHING FOR ORDERS. PATIENT DENIES ANY NEEDS AT THIS TIME.
[2018-11-19 08:25] LABS: HEMATOCRIT 25.9 % (42.0-54.0); HEMOGLOBIN 8.9 g/dL (13.5-17.5); MCH 31.8 pg (26.0-34.0); MCHC 34.4 g/dL (31.0-37.0); MCV 92.5 fL (80.0-100.0); MEAN PLATELET VOLUME 9.9 fL (7.4-10.4); PLATELET COUNT 202 10x3/uL (130-400); RDW 17.7 % (11.5-14.5)
[2018-11-19 08:26] LABS: WBC 11.3 10x3/uL (4.8-10.8)
[2018-11-19 08:32] VITALS: BP 137/87
[2018-11-19 09:26] LABS: EOSINOPHILS 2 % (0-7); LYMPHOCYTES 23 % (15-50); MONOCYTES 18 % (2-11); NEUTROPHILS 40 % (40-80); PLATELET ESTIMATE NORMAL
[2018-11-19 09:27] LABS: ROULEAUX OCC
--- NOTE | 2018-11-19 11:25 | NUR ---
PATIENT HAS BEEN DISCHARGED. IV IN LEFT ARM HAS BEEN REMOVED WITH CATHETER INTACT. ALL DISCHARGE TEACHING HAS BEEN DONE, AND PAPERS SIGNED. ALL PATIENT BELONGINGS HAVE BEEN REMOVED FROM THE ROOM. PATIENT WHEN HOME WITH FAMILY AND WHEN DOWNSTAIRS BY WHEELCHAIR. ALL PATIENT BELONGINGS WERE REMOVED FROM THE ROOM.
--- NOTE | 2018-11-20 08:50 | MORECARE ---
CASE MANAGEMENT DISCHARGE SUMMARY PATIENT: MARIA TERESA MCKEON JR UNIT: [id number] ADM DATE: 11/18/18 AGE: 78 : 41 SEX: M ROOM/BED: D.2126 AUTHOR: SANDY DEMPSEY PHYSICIAN: REFERRING PHYSICIAN: JORGE EL MD DATE OF SERVICE: 11/20/18 Discharge Plan Patient Name: MARIA TERESA MCKEON [facility] [facility] 1940 Planned Disposition: Home Anticipated Discharge Date: 11/19/18 Discharge Date: 11/19/2018 Expected LOS: 1 Initial Reviewer: [email or web address] Initial Review Date: 11/20/2018 Generated: 11/20/18 9:49 am Patient Name: MARIA TERESA MCKEON Page [id number] at 0850 All edits/amendments must be made on the electronic document DICTATION DATE: 11/20/1849 PRINTING FILM STRIPPER: ENID 11/20/1849 RPT#: [id number] DC DATE:11/19/18 STATUS: DIS IN [facility] [address] [place] [address] END OF REPORT
--- NOTE | 2018-11-20 11:36 | OP ---
PATIENT NAME: MARIA TERESA MCKEON JR MEDICAL RECORD: [id number] :42 LOCATION:D.M2 D.2126 ADMISSION DATE:11/18/18 SURGEON: JEREMIAS ELIZABETH MD DATE OF OPERATION: 11/18/2018 PREOPERATIVE DIAGNOSIS: Paroxysmal atrial fibrillation. POSTOPERATIVE DIAGNOSIS: Paroxysmal atrial fibrillation. PROCEDURES: 1. Left subclavian vein dual-lead pacemaker placement. 2. Fluoroscopic interpretation. SURGEON: Jeremias Elizabeth MD CO-SURGEON: Mir Sheehan MD REPORT OF PROCEDURE: The patient's left chest was prepped and draped in the sterile fashion. A 20 mL of 1% lidocaine with epinephrine was infused into the surrounding tissues. A transverse incision was made on the left superolateral chest and a subcutaneous pouch was made over the pectoral fascia. Needle was used to cannulate the left subclavian vein and guidewires were advanced with ease. Fluoro was used to note that the wires were in good position in the venous system. Dilator and trocar devices were placed over the wires and the wires and dilators were removed. The leads were advanced into the venous system. At this point, Dr. Sheehan positioned the leads appropriately in the atrium and ventricle. Once the leads were noted to be in good position and the trocars were removed. The leads were sutured into place with 0 Ti-Cron. We then affixed the leads to the pacemaker, which was placed into the subcutaneous pouch and sutured to the pectoral fascia using a single-interrupted 0 Ti-Cron. The subcutaneous tissues were irrigated out with antibiotic solution and then reapproximated with interrupted 3-0 Vicryl. The skin was closed with running subcutaneous 5-0 Monocryl. COMPLICATIONS: None. CONDITION: Stable. ANESTHESIA: Local MAC. BLOOD LOSS: 30 mL. TRANSINT:[id number] Voice Confirmation ID: [id number] DOCUMENT ID: [id number] JEREMIAS ELIZABETH MD at 1136 CC: [id number] DICTATION DATE: 11/18/181724 SLIP TENDER: 11/18/182054 DIS IN 11/19/18 [facility] [address] [place] [id number]
--- NOTE | 2018-11-20 13:11 | OP ---
PATIENT NAME: ANTWAN MCKEON JR MEDICAL RECORD: [id number] :42 LOCATION:D.M2 D.2126 ADMISSION DATE:11/18/18 SURGEON: JORGE EL MD DATE OF OPERATION: 11/18/2018 PROCEDURE: Lead portion of permanent pacemaker placement. INDICATION: Sick sinus syndrome with paroxysmal atrial flutter and pauses as well as tachybrady. DESCRIPTION OF PROCEDURE: After left subclavian was cannulated via modified Seldinger technique via Dr. Cuadra, first under fluoroscopic guidance, RV lead was placed in RV apex without difficulty. After adequate R waves and thresholds were obtained, the right atrial lead under fluoroscopic guidance was placed in the right atrial appendage without difficulty. After adequate flutter waves were obtained, the attached leads to the appropriate poles of the generator and the pocket was closed via Dr. Cuadra. IMPRESSION: Successful lead portion of permanent pacemaker placement on Antwan Mckeon. ESTIMATED BLOOD LOSS: Minimal. COMPLICATIONS: None. DISPOSITION: To the floor, stable. TRANSINT:[id number] Voice Confirmation ID: [id number] DOCUMENT ID: [id number] JORGE EL MD at 1311 CC: [id number] DICTATION DATE: 11/18/181717 TYPEWRITER REPAIRER: 11/18/182047 DIS IN 11/19/18 [address] [place] [address]
== END 2018-11-19 11:35 | disposition home or self-care (01) ==
LOC: D.CATH 12:14 → D.M2 17:13 → OBSVTIME 17:13 → D.M2 11-19 11:35
PROVIDERS: Emergency Medicine; ADMIT Internal Medicine Interventional Cardiology; ATTEND Internal Medicine Interventional Cardiology
DX: I48.0 Paroxysmal atrial fibrillation (principal)

== ENCOUNTER → 2018-12-05 13:03 | Outpatient (CLI) | payer MEDICARE, OTHER ==
[~2018-12-05] VITALS: Ht 188 cm; Wt 90.5 kg
[~2018-12-05 13:03] MED LIST changes: +FLORAJEN3 CAPS460 MG PO; +LANOXIN125 MCG PO; +LEVOFLOXACIN500 MG PO; +MUCINEX600 MG PO; +PHENERGAN25 M1 PO; +PROTONIX40 MG PO; +TESSALON PERLE100 MG PO
[2018-12-05 14:05] VITALS: Ht 188 cm; Wt 90.5 kg
== END | disposition home or self-care (01) ==
LOC: D.OPS 13:00
PROVIDERS: ATTEND Nurse Practitioner Family
DX: D64.9 Anemia, unspecified (principal)

== ENCOUNTER 2018-12-09 09:59 | Outpatient (CLI) | payer MEDICARE, OTHER ==
[~2018-12-09] VITALS: Ht 188 cm; Wt 90.0 kg
--- NOTE | ~2018-12-09 | HEMODYNAMI ---
PATIENT:MARIA TERESA MCKEON JR MEDICAL RECORD: [id number] : 42 LOCATION:D.CAT ADMISSION DATE: 12/09/18 Generatedon:12/09/201812:27 Patient name: MARIA TERESA MCKEON Patient #: [id number] SSN: [id number] : 1940 Date of study: 12/09/2018 Page: Of Hemodynamic Procedure Report Patient Data Patient Demographics Procedure consent was obtained First Name: MARIA TERESA Gender: Male Last Name: LINDA Suffix: Jr Ty Initial: SYED : 1940 Patient #: [id number] Age: 78 year(s) Race: SSN: [id number] Additional ID: [id number] Contact details [address]: [address] [place] [address] State: [place] City: [place] Zip code: [address] Past Medical History Allergies Allergen Reaction Date Comments Reported Other allergy 09/16/2018 lisinopril Other allergy 11/18/2018 LISINOPRIL, LOSARTAN Other allergy 12/09/2018 Lisinopril Admission Admission Data Admission Date: 12/09/2018 Admission Time: 9:59 Height (in.): 73 BSA: 2.19 (m2) Height (cm.): 185.42 BMI: 27.57 (kg/m2) Weight (lbs.): 209 Weight (kg.): 94.8 Lab Results Lab Result Date: 12/09/2018 Lab Result Time: 0:00 Biochemistry Name Units Result Min Max BUN mg/dl 19 --(----)*- 7 18 Creatinine mg/dl 1.1 --(--*-)-- 0.6 1.3 eGFR ml/min 69 *-(----)-- 90 120 AM CBC Name Units Result Min Max Hemoglobin g/dl 8.4 *-(----)-- 13.5 17.5 Procedure Procedure Types Cath Procedure Diagnostic Procedure Cardioversion External Procedure Description Procedure Date Procedure Date: 12/09/2018 Procedure Start Time: 12:13 Procedure End Time: 12:26 Procedure Staff Name Function Jam Carbone MD Performing Physician Luisana Red RT Monitor Felton Zhao RN Nurse Tiara Santos RT Scrub Chip Epps MD Additional personnel Procedure Data Cath Procedure Estimated blood loss: 10 ml Procedure Complications No complications Procedure Medications Medication Administration Route Dosage 0.9% NaCl I.V. 100 ml/hr Oxygen etCO2 Nasal cannula 4 l/min Refer to Anesthesia Notes for Sedation Medications Hemodynamics Rest BSA: 2.19 (m2) HGB: 8.4 (g/dl) O2 Consumption: Estimated: 271.1 (ml/min) O2 Consumption indexed: Estimated:123.79 (ml/min/m) Heart Rate: 94 (bpm) Snapshots Pre Cath Intra NCS Post Cath Vital Signs Time Heart Resp SPO2 etCO2 NIBP (mmHg) Rhythm Pain Sedation Rate (ipm) (%) (mmHg) Status Level (bpm) 11:52:54 96 20 93 0 106/87(98) A-Fib 0 (11) 10(A) , No pain 11:57:10 99 13 94 0 118/72(78) A-Fib 0 (11) 10(A) , No pain 12:01:18 95 16 95 13.4 123/95(120) A-Fib 0 (11) 10(A) , No pain 12:05:27 93 26 94 23.2 111/88(107) A-Fib 0 (11) 10(A) , No pain 12:10:39 90 18 95 26.9 101/60(89) A-Fib 0 (11) 10(A) , No pain 12:14:47 94 20 96 20.9 98/61(73) A-Fib 0 (11) 8(A) , No pain 12:19:01 86 24 92 20.9 84/40(58) NSR 0 (11) 9(A) , No pain 12:23:06 72 29 96 24.7 84/49(73) NSR 0 (11) 9(A) , No pain 12:24:10 80 22 95 16.4 96/52(65) NSR 0 (11) 9(A) , No pain Medications Time Medication Route Dose Verified Delivered Reason Notes Effective ness by by 12:02:22 0.9% NaCl I.V. 100 Felton Ya Per ml/hr Cece Zhao physician RN RN 12:02:49 Oxygen etCO2 4 Felton Ya for low Nasal l/min Cece Zhao 02 sats cannula RN RN 12:13:53 Refer to Felton Ya for Anesthesia Cece Zhao sedation Notes for RN RN Sedation Medications Procedure Log Time Note 11:44:24 Informed consent obtained and on chart 11:47:43 Patient Height : 73 inches 11:47:52 Patient Weight : 209 lbs 11:49:21 Lab Result : BUN 19 mg/dl 11:49:21 Lab Result : Hemoglobin 8.4 g/dl 11:49:21 Lab Result : eGFR AM 69 ml/min 11:49:21 Lab Result : Creatinine 1.1 mg/dl 11:50:15 Procedure Status Elective Heart Cath (OP). 11:50:18 Felton Zhao RN sent for patient. Start room use. 11:50:21 Time tracking: Regular hours (M-F 7:00 - 5:00) 11:50:26 Plan of Care:Hemodynamics will remain stable., Cardiac rhythm will remain stable., Comfort level will be maintained., Respiratory function will remain adequate., Patient/ family verbilizes understanding of procedure., Procedure tolerated without complication., Recovers from procedure without complications.. 11:50:32 Patient received from Pre/Post Procedure Room to CCL 3 Alert and oriented. Tansferred to table in Supine position. 11:50:36 Warm blankets applied, and lyle hugger turned on for patient comfort. 11:50:39 Correct patient and procedure confirmed by team. 11:50:47 ECG and BP/O2 sat monitors applied to patient. 11:50:50 Vital chart was started 11:50:56 Baseline sample Acquired. 11:51:57 Rhythm: atrial fibrillation 11:52:01 Full Disclosure recording started 11:52:17 H&P Date Dictated: 12/01/2018 Within 30 days and on chart., H&P Addendum completed by physician on day of procedure. (MUST COMPLETE FOR ALL OUTPATIENTS). 11:52:19 Pre-procedure instructions explained to patient. 11:52:23 Family in waiting room. 11:52:25 Patient NPO since Midnight. 11:52:50 Patient allergic to Other allergyLisinopril 11:53:00 Is patient on blood thinner?Yes 11:53:14 ACC The patient was administered the following blood thiners within the last 24 hours: Xarelto 11:53:34 Patient diabetic? Yes. 11:53:39 If diabetic: On Metformin? Yes 11:53:41 If on Metformin: Last Dose? 12/09/2018 11:53:48 Snore? Yes 11:54:26 Sleep apnea? Yes 11:54:36 Airway obstruction? Yes lung cancer 11:54:41 Dentures? No ? 11:55:01 IV patent on arrival in left forearm with 0.9% NaCl at [facility]. 11:55:08 Lab results completed and on chart. 11:55:13 Alarms reviewed by R. N. 11:55:14 Sharps counted by scrub and verified by R.N. 12:02:22 0.9% NaCl 100 ml/hr I.V. was administered by Felton Zhao RN; Per physician; 12:02:49 Oxygen 4 l/min etCO2 Nasal cannula was administered by Felton Zhao RN; for low 02 sats; 12:11:20 Physician arrived 12:11:22 --------ALL STOP TIME OUT------ 12:12:13 Final Timeout: patient, procedure, and site verified with staff and physician. All members of the team are in agreement. 12:12:41 Fire Safety Assessment: B--The operative or invasive procedure is being performed above the xiphoid process or in the oropharynx., C--Open oxygen or nitrous oxide is being used. 12:12:46 Physical assessment completed. ASA score P 2 - A patient with mild systemic disease as per Jam Carbone MD. 12:12:53 Sedation plan: TIVA Medication:Propofol 12:12:57 Chip Epps MD present and monitoring patient for TIVA. 12:13:53 Refer to Anesthesia Notes for Sedation Medications was administered by Felton Zhao RN; for sedation; 12:14:09 Quick combo pads placed on patients chest and back. 12:14:25 Quick Combo opened to sterile field. 12:15:22 Shock delivered. 12:15:26 Defibrillator synced and charged to 200 Joules. 12:15:41 Patient cardioverted to sinus rhythm . 12:15:57 Procedure ended.(Physican Out) 12:25:14 Post-procedure physical assessment completed. ASA score P 2 - A patient with mild systemic disease as per Jam Carbone MD. 12:25:17 Post procedure rhythm: sinus rhythm 12:25:21 Estimated blood loss: 10 ml 12:25:24 Post procedure instruction explained to patient.Patient verbalizes understanding. 12:25:33 Procedure and supply charges have been captured, reviewed, submitted and are correct. 12:25:54 Procedure Complication : No complications 12:25:57 Vital chart was stopped 12:25:58 See physician's report for complete and final results. 12:26:13 Report given to Pre/Post Procedure Room. 12:26:19 Patient transfered to Pre/Post Procedure Room with Stretcher. 12::22 Procedure ended. 12::22 Full Disclosure recording stopped 12::30 End room use (Document Last) Device Usage Item Manufacture Quantity Catalog Hospital Part Current Minimal Lot# / Name Number Charge Number [facility]# Code [facility] 1 [id number] Combo Signature Audit [place] Stage Time Signature Unsigned Intra-Procedure 12/09/2018 Luisana Red 12:27:07 PM RT(R) Signatures Performing Physician : Signature : Jam Carbone MD Date : Time : Monitor : Luisana Red Signature : RT Date : Time : Nurse : Felton Zhao Signature : RN Date : Time : [place] [address] [place] [place], [place] [address]
[~2018-12-09 09:59] MED LIST changes: -FLORAJEN3 CAPS460 MG PO; -LEVOFLOXACIN500 MG PO; -MUCINEX600 MG PO; -PROTONIX40 MG PO; -TESSALON PERLE100 MG PO
[2018-12-09 10:44] VITALS: BP 120/78; Ht 188 cm; Wt 90.0 kg
[2018-12-09 11:02] LABS: HEMOGLOBIN 8.4 g/dL (13.5-17.5); MCH 32.3 pg (26.0-34.0); MCV 92.3 fL (80.0-100.0); MEAN PLATELET VOLUME 9.9 fL (7.4-10.4); PLATELET COUNT 184 10x3/uL (130-400); RDW 17.6 % (11.5-14.5); WBC 2.1 10x3/uL (4.8-10.8)
[2018-12-09 11:05] LABS: ANION GAP 15.2 mmol/L (8-16); CALCIUM 8.7 mg/dL (8.5-10.1); CARBON DIOXIDE 21.6 mmol/L (21.0-32.0); CREATININE - SERUM 1.1 mg/dL (0.6-1.3); POTASSIUM - SERUM 3.8 mmol/L (3.5-5.1)
[2018-12-09 11:17] LABS: INR 1.75 (0.85-1.17); PROTIME 19.8 SECONDS (11.6-15.0)
[2018-12-09 12:03] LABS: LYMPHOCYTES 50 % (15-50); MONOCYTES 27 % (2-11); NEUTROPHILS 19 % (40-80); PLATELET ESTIMATE NORMAL; ROULEAUX OCC
--- NOTE | 2018-12-09 13:30 | NUR ---
1250 PT IS ALERT, DENIES ANY C/O. NSR, DENIES ANY CHEST PAIN. LABS REVIEWED WITH DR VIEAR AND NO NEW ORDERS RECEIVED. PT KACI PO FLUIDS AND SANWICH WITH NO NAUSEA. CALL LIGHT IN REACH, AT BEDSIDE.
--- NOTE | 2018-12-09 13:31 | NUR ---
1310 DR VIERA HAS ROUNDED ON PT. PT DENIES ANY C/O. NSR AND DENIES ANY C/O CHEST PAIN. RESP WITH EASE. AT BEDSIDE, CALL LIGHT IN REACH.
--- NOTE | 2018-12-09 13:59 | NUR ---
1330 PT IS ALERT, DENIES ANY C/O. KACI PO FLUIDS AND SANDWICH WITH NO NAUSEA. PT VOIDED 300 CC CLEAR YELLOW URINE TO URINAL. 1345 IV DC'D WITH CATH INTACT. DC INSTRUCTIONS REVIEWED WITH PT WHO VERBALIZES UNDERSTANDING. 1350 ASSISTED PT WITH DRESSING FOR DC TO HOME. PT IS ALERT AND DENIES ANY C/O. STATES HAS APPOINTMENT AT DR [facility] TOMORROW AND WILL FOLLOW UP WITH DR GARCIAS SOON HE MISSED HIS CHEMO APPOINTMENT YESTERDAY. PT ESCORTED TO PRIVATE AUTO VIA WC BY NURSE WITH DRIVING HIM HOME.
--- NOTE | 2018-12-12 10:47 | OP ---
PATIENT NAME: MARIA TERESA MCKEON JR MEDICAL RECORD: [id number] :[birth year] LOCATION:D.CAT ADMISSION DATE: SURGEON: ANA LAURA VIERA MD DATE OF OPERATION: 12/09/2018 PROCEDURES: 1. DC cardioversion. 2. Pacemaker interrogation. INDICATION: Atrial fibrillation. PROCEDURE IN DETAIL: IV conscious sedation was per anesthesia. He received 1 shock at 275 joules restoring sinus rhythm. This was confirmed with pacemaker interrogation. Elsewise pacemaker interrogation was normal. TRANSINT:[id number] Voice Confirmation ID: [id number] DOCUMENT ID: [id number] ANA LAURA VIERA MD at 1047 CC: [id number] DICTATION DATE: 12/09/18 1217 [facility] SUPERVISOR: 12/09/18 1222 DEP CLI 12/09/[address] [address]
== END 2018-12-09 13:50 | disposition home or self-care (01) ==
LOC: D.CATH 09:59
PROVIDERS: ATTEND Internal Medicine Interventional Cardiology
DX: I48.91 Unspecified atrial fibrillation (principal); Z95.0 Presence of cardiac pacemaker; Z01.812 Encounter for preprocedural laboratory examination

== ENCOUNTER 2018-12-10 12:15 | Inpatient (IN) | payer MEDICARE, OTHER ==
[~2018-12-10] VITALS: Ht 190.5 cm; Wt 93.0 kg
[2018-12-10 13:06] VITALS: BP 106/53; BMI 25.6
[2018-12-10 13:33] LABS: BASOPHILS 0.7 % (0-2); EOSINOPHILS 0.3 % (0-7); HEMATOCRIT 20.7 % (42.0-54.0); IMMATURE GRANULOCYTES 2.9 % (0-5); LYMPHOCYTES 40.7 % (15-50); MCHC 35.3 g/dL (31.0-37.0); MCV 93.7 fL (80.0-100.0); MEAN PLATELET VOLUME 10.3 fL (7.4-10.4); MONOCYTES 26.4 % (2-11); PLATELET COUNT 184 10x3/uL (130-400); RBC 2.21 10x6/uL (4.20-6.10); RDW 17.8 % (11.5-14.5)
[2018-12-10 13:43] LABS: WBC 3.1 10x3/uL (4.8-10.8)
[2018-12-10 13:47] LABS: HEMOGLOBIN 7.3 g/dL (13.5-17.5)
[2018-12-10 13:49] LABS: ANION GAP 14.1 mmol/L (8-16); BILIRUBIN - TOTAL 0.63 mg/dL (0.2-1.3); CALCIUM 8.2 mg/dL (8.5-10.1); CARBON DIOXIDE 23.8 mmol/L (21.0-32.0); CREATININE - SERUM 1.1 mg/dL (0.6-1.3); POTASSIUM - SERUM 3.9 mmol/L (3.5-5.1); PROTEIN - SERUM 6.5 g/dL (6.4-8.2)
[2018-12-10 13:51] LABS: DIGOXIN 0.62 ng/mL (0.90-2.00)
[2018-12-10 16:24] VITALS: BP 108/48
[2018-12-10 22:07] VITALS: BP 125/69
[2018-12-10 23:49] LABS: APPEARANCE CLEAR (CLEAR); BILIRUBIN NEGATIVE (NEGATIVE); COLOR YELLOW (YELLOW); GLUCOSE NEGATIVE (NEGATIVE); KETONE NEGATIVE (NEGATIVE); NITRITE NEGATIVE (NEGATIVE); PROTEIN 1+ mg/dL (NEGATIVE); SPECIFIC GRAVITY 1.015 (1.005-1.020); UROBILINOGEN NORMAL (NORMAL)
[2018-12-10 23:56] LABS: BACTERIA FEW /hpf (NONE SEEN); EPITHELIAL CELLS 0-5 /hpf (0-5); RED CELLS - URINE 0-5 /hpf (0-5); WHITE CELLS - URINE 0-5 /hpf (0-5)
[2018-12-11 01:27] VITALS: BP 117/61
[2018-12-11 05:45] VITALS: BP 142/73
[2018-12-11 06:47] LABS: ALBUMIN 2.6 g/dL (3.4-5.0); ALKALINE PHOSPHATASE 79 U/L (46-116); ALT (SGPT) 59 U/L (10-68); BILIRUBIN - TOTAL 1.33 mg/dL (0.2-1.3); CALC OSMOLALITY 264 mosm/kg (275-300); CALCIUM 8.3 mg/dL (8.5-10.1); CARBON DIOXIDE 20.9 mmol/L (21.0-32.0); CHLORIDE - SERUM 97 mmol/L (98-107); CREATININE - SERUM 0.9 mg/dL (0.6-1.3); GLUCOSE 149 mg/dL (74-106); MAGNESIUM - SERUM 1.2 mg/dL (1.8-2.4); POTASSIUM - SERUM 3.4 mmol/L (3.5-5.1); PROTEIN - SERUM 6.7 g/dL (6.4-8.2); SODIUM 130 mmol/L (136-145); eGFR NON AFRICAN AMERICAN 87 mL/min (90-120)
[2018-12-11 07:35] LABS: UREA NITROGEN 14 mg/dL (7-18)
[2018-12-11 07:36] LABS: PHOSPHOROUS 1.3 mg/dL (2.5-4.9)
[2018-12-11 07:44] LABS: HEMATOCRIT 24.9 % (42.0-54.0); HEMOGLOBIN 8.8 g/dL (13.5-17.5); MCH 32.1 pg (26.0-34.0); MCHC 35.3 g/dL (31.0-37.0); MCV 90.9 fL (80.0-100.0); MEAN PLATELET VOLUME 10.3 fL (7.4-10.4); PLATELET COUNT 182 10x3/uL (130-400); RBC 2.74 10x6/uL (4.20-6.10); RDW 17.2 % (11.5-14.5)
--- NOTE | 2018-12-11 07:59 | NUR ---
SPOKE WITH ANAHI IN PHARMACY FOR PHOSPHORUS 20MM IVPB. PHOS LEVEL 1.3 THIS AM
--- NOTE | 2018-12-11 08:00 | NUR ---
ASSESSMENT PER FLOW SHEET. PT IS WITHOUT DISTRESS.MONITOR FOR NEEDS.NEUTROPENIC ISOLATIONMAINTAINED
[2018-12-11 09:18] LABS: ANISOCYTOSIS OCC; LYMPHOCYTES 13 % (15-50); MONOCYTES 22 % (2-11); NEUTROPHILS 39 % (40-80); PLATELET ESTIMATE NORMAL; POLYCHROMASIA OCC; ROULEAUX OCC
[2018-12-11 09:39] VITALS: BP 124/71
--- NOTE | 2018-12-11 10:30 | NUR ---
NEUTROPENIC ISOLATION DCD PER DR GARCIAS
--- NOTE | 2018-12-11 10:55 | NUR ---
SPOKE WITH ANAHI IN PHARMACY RWE.. GRANIX DOSE FOR THIS AM NOT ON UNIT
[2018-12-11 12:56] VITALS: BP 127/71
[2018-12-11 13:12] VITALS: BMI 25.6
--- NOTE | 2018-12-11 15:00 | NUR ---
UP AT BEDSIDE. BATH GIVEN PER .
--- NOTE | 2018-12-11 15:43 | NUR ---
OT NOTE: PT COMPLETED ADL MOB WITH SBA. PT COMPLETED SIT TO STAND WITH SBA. PT STATED HE HAS SOB UPON EXERTION AND HAS HAD SEVERAL TRANSFUSIONS THIS WEEK. THANK YOU, JUAN M CRUZ
[2018-12-11 17:23] VITALS: BP 134/80
--- NOTE | 2018-12-11 18:53 | NUR ---
REMAINS WITHOUT CHANGE.CONT PLAN OF CARE
--- NOTE | 2018-12-11 19:00 | NUR ---
REPORT RECEIVED AND CARE OF PT ASSUMED. PT LYING IN SUPINE POSITION WATCHING TV. IV TO LEFT FA PATENT WITH NS INFUSING AT 50 ML/HR. WILL MONITOR FOR NEEDS.
--- NOTE | 2018-12-11 20:25 | NUR ---
HS MEDICATIONS GIVEN TO INCLUDE AMBIEN 10 MG PO PER REQUEST FOR SLEEP. FSBS 166....PT DECLINED COVERAGE PER SLIDING. PT REFUSED HS SNACK.
[2018-12-11 21:10] VITALS: BP 136/78
--- NOTE | 2018-12-12 00:56 | NUR ---
FOUND PT SITTING ON THE SIDE OF THE BED UNAWARE OF HIS SURROUNDINGS. HE HAD PULLED OUT IV AND HAD SCATTERED BLOOD ALL OVER THE FLOOR , SINK, AND CABINET. I ASKED HIM WHY HE DIDN'T PRESS CALL LIGHT FOR HELP HE STATED THAT HE DIDN'T NEED ANY HELP. CLEANED ROOM AND FLOOR. CHANGED ALL BEDDING.
--- NOTE | 2018-12-12 00:58 | NUR ---
RE-STARTED IV TO LEFT WRIST USING 20 GUAGE CATHETER IN ONE STICK. RE-STARTED IV FLUIDS.
--- NOTE | 2018-12-12 01:00 | NUR ---
D/C'S TERESE DOVER APN DUE TO SEVERE CONFUSION.
[2018-12-12 01:14] VITALS: BP 148/76
[2018-12-12 06:43] LABS: ALBUMIN 2.5 g/dL (3.4-5.0); ALKALINE PHOSPHATASE 95 U/L (46-116); ALT (SGPT) 53 U/L (10-68); BILIRUBIN - TOTAL 0.75 mg/dL (0.2-1.3); CALCIUM 8.2 mg/dL (8.5-10.1); CARBON DIOXIDE 22.3 mmol/L (21.0-32.0); CHLORIDE - SERUM 101 mmol/L (98-107); CREATININE - SERUM 0.8 mg/dL (0.6-1.3); GLUCOSE 143 mg/dL (74-106); MAGNESIUM - SERUM 1.2 mg/dL (1.8-2.4); PROTEIN - SERUM 6.6 g/dL (6.4-8.2); SODIUM 138 mmol/L (136-145); VANCOMYCIN - TROUGH 9.1 ug/mL (10.0-20.0); eGFR NON AFRICAN AMERICAN > 90 mL/min (90-120)
[2018-12-12 06:46] LABS: CALC OSMOLALITY 275 mosm/kg (275-300); UREA NITROGEN 6 mg/dL (7-18)
[2018-12-12 06:48] LABS: POTASSIUM - SERUM 2.8 mmol/L (3.5-5.1)
[2018-12-12 07:23] LABS: BASOPHILS 0.4 % (0-2); EOSINOPHILS 0.1 % (0-7); HEMATOCRIT 25.6 % (42.0-54.0); MCH 31.7 pg (26.0-34.0); MCHC 35.2 g/dL (31.0-37.0); MCV 90.1 fL (80.0-100.0); MONOCYTES 9.9 % (2-11); NEUTROPHILS 71.6 % (40-80); PLATELET COUNT 224 10x3/uL (130-400); RBC 2.84 10x6/uL (4.20-6.10); RDW 17.7 % (11.5-14.5); WBC 24.2 10x3/uL (4.8-10.8)
[2018-12-12 09:40] VITALS: BP 148/85
--- NOTE | 2018-12-12 09:48 | NUR ---
HR TACHY 108-115, TELEMETRY ORDERED, SPOKE WITH FOUZIA ABOUT PUTTING TELEMETRY ON PATIENT ORDERED ON 12/10
[2018-12-12 13:03] VITALS: BP 163/86
--- NOTE | 2018-12-12 13:40 | NUR ---
telemetry called stated HR 160 with pac's, pt up moving around per nurse Yaneth called and telemetry stated 113-130 with PAC's Christina adamson
--- NOTE | 2018-12-12 13:53 | NUR ---
PAPER COATING SUPERVISOR REPORTS PATIENT HEARTRATE UP INTO THE 130'S TO 160'S IN VTACH WHILE PATIENT IS UP TO THE BR AND INTO CHAIR. NOTIFIED TORY AT THIS TIME. NEW ORDERS RECIEVED AND CARRIED OUT.
--- NOTE | 2018-12-12 13:54 | NUR ---
PATIENT SITTING UP IN CHAIR WITH NO SIGNS OF DISTRESS. VS STABLE. FAMILY AT BEDSIDE. CALL LIGHT WITHIN REACH.
[2018-12-12 14:56] VITALS: Ht 190.5 cm; Wt 93.0 kg
[2018-12-12 15:03] LABS: CKMB 0.7 U/L (0.0-3.6); CREATINE KINASE 51 UL (21-232); TROPONIN-I 0.052 ng/mL (0.000-0.060)
[2018-12-12 16:26] VITALS: BP 140/73
--- NOTE | 2018-12-12 16:31 | NUR ---
PATIENT BACK TO BED. HR 130'S TO 160' AGAIN. SOTOLOL GIVEN. PATIENT HAS NO SYMPTOMS OR SIGNS OF DISTRESS. FAMILY AT BEDSIDE. CALL LIGHT WITHIN REACH.
--- NOTE | 2018-12-12 17:00 | NUR ---
SPOKE WITH DR. GAR ABOUT HR 164 AT THIS TIME. NEW ORDERS GIVEN. SPOKE TO HS TO HAVE A PCU NURSE COME PUSH CARDIZEM IVP [address] GAR. PATIENT IN BED WITH IV INTACT. NO COMPLAINTS OR SIGNS OF DISTRESS. CALL LIGHT WITHIN REACH.
--- NOTE | 2018-12-12 19:00 | NUR ---
BEDSIDE REPORT RECEIVED AND CARE OF PT ASSUMED. PT LYING IN LOW KATHLEEN'S POSITION WATCHING TV. IV TO LEFT WRIST PATENT WITH NS INFUSING AT 50 ML/HR. TELEMETRY IN PLACE AND READING 99 SR AT THIS ASSESSMENT. WILL MONITOR FOR NEEDS.
[2018-12-12 19:52] LABS: APPEARANCE CLEAR (CLEAR); BILIRUBIN NEGATIVE (NEGATIVE); COLOR YELLOW (YELLOW); GLUCOSE 50 mg/dL (NEGATIVE); KETONE NEGATIVE (NEGATIVE); NITRITE NEGATIVE (NEGATIVE); PROTEIN TRACE mg/dL (NEGATIVE); SPECIFIC GRAVITY 1.005 (1.005-1.020); UROBILINOGEN NORMAL (NORMAL)
[2018-12-12 20:26] VITALS: BP 137/78
--- NOTE | 2018-12-12 20:39 | NUR ---
HS MEDICATIOS GIVEN. FSBS 199 THIS CHECK REQURING COVERAGE WITH 2 UNITS OF INSULIN PER SLIDING SCALE. HELD BETAPACE TILL MIDNIGHT HE HAD HIS FIRST DOSE TODAY AT 1645. WILL MONITOR FOR NEEDS.
[2018-12-12 20:41] LABS: CKMB 0.5 U/L (0.0-3.6); CREATINE KINASE 40 UL (21-232); POTASSIUM - SERUM 3.8 mmol/L (3.5-5.1)
--- NOTE | 2018-12-12 21:00 | NUR ---
HS SNACK: MUFFIN FROM HOME.
[2018-12-13 00:48] VITALS: BP 132/80
[2018-12-13 02:13] LABS: BASOPHILS 0.6 % (0-2); EOSINOPHILS 0.2 % (0-7); HEMATOCRIT 25.6 % (42.0-54.0); HEMOGLOBIN 9.1 g/dL (13.5-17.5); IMMATURE GRANULOCYTES 3.5 % (0-5); LYMPHOCYTES 16.6 % (15-50); MCH 32.3 pg (26.0-34.0); MCHC 35.5 g/dL (31.0-37.0); MCV 90.8 fL (80.0-100.0); MEAN PLATELET VOLUME 9.5 fL (7.4-10.4); MONOCYTES 7.7 % (2-11); NEUTROPHILS 71.4 % (40-80); PLATELET COUNT 217 10x3/uL (130-400); RBC 2.82 10x6/uL (4.20-6.10); WBC 19.9 10x3/uL (4.8-10.8)
[2018-12-13 02:31] LABS: ALBUMIN 2.4 g/dL (3.4-5.0); ALKALINE PHOSPHATASE 87 U/L (46-116); ALT (SGPT) 52 U/L (10-68); BILIRUBIN - TOTAL 0.39 mg/dL (0.2-1.3); CALC OSMOLALITY 278 mosm/kg (275-300); CALCIUM 7.6 mg/dL (8.5-10.1); CARBON DIOXIDE 22.6 mmol/L (21.0-32.0); CHLORIDE - SERUM 105 mmol/L (98-107); CKMB 0.5 U/L (0.0-3.6); CREATINE KINASE 42 UL (21-232); CREATININE - SERUM 0.7 mg/dL (0.6-1.3); GLUCOSE 146 mg/dL (74-106); MAGNESIUM - SERUM 1.3 mg/dL (1.8-2.4); PHOSPHOROUS 1.7 mg/dL (2.5-4.9); POTASSIUM - SERUM 3.8 mmol/L (3.5-5.1); PROTEIN - SERUM 5.7 g/dL (6.4-8.2); SODIUM 140 mmol/L (136-145); TROPONIN-I 0.059 ng/mL (0.000-0.060); UREA NITROGEN 5 mg/dL (7-18); eGFR NON AFRICAN AMERICAN > 90 mL/min (90-120)
--- NOTE | 2018-12-13 04:39 | NUR ---
IV IN LEFT WRIST GETTING TENDER. REMOVED WITH CATHETER TIP INTACT. RE-SITED TO LEFT HAND USING 22 GUAGE CATHETER. IV FLUIDS RE-STARTED.
[2018-12-13 05:17] VITALS: BP 135/76
--- NOTE | 2018-12-13 08:00 | NUR ---
REC'D PT LYING IN BED RESP EVEN AND UNLABORED PT DENIES PAIN AT THIS TIME. IV TO LEFT HAND PATENT AND INTACT AT THIS TIME. SRX2 BED AT LOWEST SETTING WITH BRAKES LOCKED AT THIS TIME. CALL LIGHT WITHIN REACH WILL CONTINUE TO MONITOR
[2018-12-13 08:08] VITALS: BP 143/83
[2018-12-13 12:24] VITALS: BP 153/87
--- NOTE | 2018-12-13 14:28 | MORECARE ---
CASE MANAGEMENT DISCHARGE SUMMARY PATIENT: MARIA TERESA MCKEON JR UNIT: [id number] ADM DATE: 12/10/18 AGE: 78 : 41 SEX: M ROOM/BED: D.2218 AUTHOR: SANDY DEMPSEY PHYSICIAN: REFERRING PHYSICIAN: AYO RAMIREZ MD DATE OF SERVICE: 12/13/18 Discharge Plan Patient Name: MARIA TERESA MCKEON [facility] [facility] 1940 Planned Disposition: Home Anticipated Discharge Date: Discharge Date: Expected LOS: Initial Reviewer: [email or web address] Initial Review Date: 12/10/2018 Generated: 12/13/18 3:27 pm DCPIA - Discharge Planning Initial Assessment Updated by [email or web address]: Gabriella Palomo on 12/13/18 2:26 pm * Is the patient Alert and Oriented? Yes * PCP EDMONDS * Pharmacy [place] * Preadmission Environment Home with Family * ADLs Independent * Equipment CPAP * Additional services required to return to the preadmission environment? No * Can the patient safely return to the preadmission environment? Yes * Has this patient been hospitalized within the prior 30 days at any hospital? Yes Patient Name: MARIA TERESA MCKEON Page 67168 at 1428 All edits/amendments must be made on the electronic document DICTATION DATE: 12/13/181426 DIESEL MECHANIC HELPER: ENID 12/13/18 1427 RPT#: [id number] DC DATE: STATUS: ADM IN [facility] [address] [place] [address] END OF REPORT
--- NOTE | 2018-12-13 14:34 | MORECARE ---
CASE MANAGEMENT DISCHARGE SUMMARY PATIENT: MARIA TERESA MCKEON UNIT: [id number] ADM DATE: 12/10/18 AGE: 78 : 41 SEX: M ROOM/BED: D.2218 AUTHOR: SANDY DEMPSEY PHYSICIAN: REFERRING PHYSICIAN: AYO RAMIREZ MD DATE OF SERVICE: 12/13/18 Discharge Plan Patient Name: MARIA TERESA MCKEON Facility: [facility]:[place] : 1940 Planned Disposition: Home Anticipated Discharge Date: Discharge Date: Expected LOS: Initial Reviewer: [email or web address] Initial Review Date: 12/10/2018 Generated: 12/13/18 3:34 pm Comments DCP- Discharge Planning Updated by [id number]: Gabriella Palomo on 12/13/18 1:[address] Patient Name: MARIA TERESA MCKEON Admission Status: Elective Accout number: [id number] Admission Date: 12-10-2018 : 1940 Admission Diagnosis:NEUTROPENIA, UNSPECIFIED Attending: AYO RAMIREZ Current LOS: 3 Anticipated DC Date: Planned Disposition: Home Primary Insurance: MEDICARE A & B Discharge Planning Comments: CM MET WITH PATIENT AND HIS ABOUT DC PLANNING/NEEDS. DENIES ANY NEEDS AND PLANS TO BE DC'D HOME WITH . CM TO FOLLOW AND ASSIST. Casting And Pasting Supervisor: Gabriella Palomo DCPIA - Discharge Planning Initial Assessment Updated by [email or web address]: Gabriella Palomo on 12/13/18 2:26 pm * Is the patient Alert and Oriented? Yes * PCP GREY * Pharmacy [place] * Preadmission Environment Home with Family * ADLs Independent * Equipment CPAP * Additional services required to return to the preadmission environment? No * Can the patient safely return to the preadmission environment? Yes * Has this patient been hospitalized within the prior 30 days at any hospital? Yes Last DP export: 12/13/18 1:28 p Patient Name: MARIA TERESA MCKEON Page 10386 at 1434 All edits/amendments must be made on the electronic document DICTATION DATE: 12/13/18 1434 RAILCAR SWITCHER: ENID 12/13/18 1434 RPT#: [id number] SC DATE: STATUS: ADM IN [facility] [address] [place] [address] END OF REPORT
[2018-12-13 17:24] VITALS: BP 159/76
--- NOTE | 2018-12-13 19:00 | NUR ---
REPORT RECEIVED AND CARE OF PT ASSUMED. PT LYING IN SUPINE POSITION WATCHING TV. IV TO LEFT HAND PATENT. TELEMETRY IN PLACE. WILL MONITOR FOR NEEDS.
--- NOTE | 2018-12-13 20:15 | NUR ---
IV TO LEFT HAND SWELLING AND TENDER. REMOVED WITH CATHETER TIP INTACT. RE-SITED IV TO RIGHT WRIST USING 20 GUAGE CATHETER. IV FLUIDS RE-STARTED.
--- NOTE | 2018-12-13 20:20 | NUR ---
HS MEDICATIONS GIVEN. FSBS 184 THIS CHECK REQUIRING COVERAGE WITH 2 UNITS OF INSULIN PER SLIDING SCALE.
--- NOTE | 2018-12-13 20:35 | NUR ---
GAVE VANILLA PUDDING FOR HS SNACK.
[2018-12-13 20:58] VITALS: BP 158/90
[2018-12-14 00:48] VITALS: BP 126/80
[2018-12-14 04:54] LABS: BASOPHILS 0.5 % (0-2); EOSINOPHILS 0.3 % (0-7); HEMATOCRIT 25.8 % (42.0-54.0); HEMOGLOBIN 8.9 g/dL (13.5-17.5); IMMATURE GRANULOCYTES 3.1 % (0-5); LYMPHOCYTES 25.8 % (15-50); MCH 31.9 pg (26.0-34.0); MCHC 34.5 g/dL (31.0-37.0); MCV 92.5 fL (80.0-100.0); MEAN PLATELET VOLUME 9.6 fL (7.4-10.4); MONOCYTES 13.3 % (2-11); PLATELET COUNT 246 10x3/uL (130-400); RBC 2.79 10x6/uL (4.20-6.10); RDW 18.2 % (11.5-14.5)
[2018-12-14 04:56] LABS: WBC 11.6 10x3/uL (4.8-10.8)
[2018-12-14 04:57] LABS: ALBUMIN 2.5 g/dL (3.4-5.0); ALKALINE PHOSPHATASE 79 U/L (46-116); ALT (SGPT) 50 U/L (10-68); BILIRUBIN - TOTAL 0.44 mg/dL (0.2-1.3); CALC OSMOLALITY 276 mosm/kg (275-300); CALCIUM 8.2 mg/dL (8.5-10.1); CARBON DIOXIDE 21.2 mmol/L (21.0-32.0); CHLORIDE - SERUM 107 mmol/L (98-107); CREATININE - SERUM 0.8 mg/dL (0.6-1.3); GLUCOSE 109 mg/dL (74-106); POTASSIUM - SERUM 3.7 mmol/L (3.5-5.1); SODIUM 140 mmol/L (136-145); UREA NITROGEN 4 mg/dL (7-18); VANCOMYCIN - TROUGH 20.1 ug/mL (10.0-20.0); eGFR NON AFRICAN AMERICAN > 90 mL/min (90-120)
[2018-12-14 05:00] LABS: MAGNESIUM - SERUM 1.7 mg/dL (1.8-2.4); PHOSPHOROUS 2.8 mg/dL (2.5-4.9)
[2018-12-14 05:24] VITALS: BP 136/74
--- NOTE | 2018-12-14 07:30 | NUR ---
REC'D PT LYING IN BED. RESP EVEN AND UNLABORED PT DENIES NEEDS AT THIS TIME. IV TO RIGHT WRIST PATENT AND INTACT AT THIS TIME. SRX2 BED AT LOWEST SETTING WITH BRAKES ON. CALL LIGHT WITHIN REACH WILL CONTINUE TO MONITOR
[2018-12-14 08:34] VITALS: BP 151/87
[2018-12-14 12:14] VITALS: BP 152/59
[2018-12-14 17:04] VITALS: BP 151/78
--- NOTE | 2018-12-14 19:00 | NUR ---
BEDSIDE REPORT RECEIVED AND CARE OF PT ASSUMED. PT LYING IN SEMI KATHLEEN'S POSITION WATCHING TV. IV TO RIGHT WRIST PATENT WITH NS INFUSING AT 50 ML/HR. TELEMETRY IN PLACE AND READING 76 SR AT THIS ASSESSMENT. WILL MONITOR FOR NEEDS.
[2018-12-14 20:00] VITALS: BP 164/90
--- NOTE | 2018-12-14 20:33 | NUR ---
HS MEDICATIONS GIVEN. FSBS 176 THIS CHECK REQUIRING COVERAGE WITH 2 UNITS OF INSULIN PER SLIDING SCALE. WILL CONTINUE TO MONITOR FOR NEEDS.
--- NOTE | 2018-12-14 20:40 | NUR ---
GAVE X2 ORANGE SHEBERT FOR HS SNACK.
[2018-12-15] VITALS: BP 137/75
[2018-12-15 04:00] VITALS: BP 146/80
[2018-12-15 05:08] LABS: BASOPHILS 0.5 % (0-2); EOSINOPHILS 0.1 % (0-7); HEMATOCRIT 26.5 % (42.0-54.0); IMMATURE GRANULOCYTES 2.3 % (0-5); LYMPHOCYTES 26.9 % (15-50); MCH 31.6 pg (26.0-34.0); MEAN PLATELET VOLUME 9.6 fL (7.4-10.4); MONOCYTES 16.8 % (2-11); NEUTROPHILS 53.4 % (40-80); PLATELET COUNT 242 10x3/uL (130-400); RBC 2.85 10x6/uL (4.20-6.10); RDW 17.9 % (11.5-14.5); WBC 9.7 10x3/uL (4.8-10.8)
[2018-12-15 05:11] LABS: ALBUMIN 2.5 g/dL (3.4-5.0); ALKALINE PHOSPHATASE 75 U/L (46-116); ALT (SGPT) 56 U/L (10-68); BILIRUBIN - TOTAL 0.47 mg/dL (0.2-1.3); CALC OSMOLALITY 275 mosm/kg (275-300); CALCIUM 8.3 mg/dL (8.5-10.1); CARBON DIOXIDE 22.4 mmol/L (21.0-32.0); CHLORIDE - SERUM 105 mmol/L (98-107); CREATININE - SERUM 0.8 mg/dL (0.6-1.3); GLUCOSE 106 mg/dL (74-106); MAGNESIUM - SERUM 1.4 mg/dL (1.8-2.4); PHOSPHOROUS 2.6 mg/dL (2.5-4.9); POTASSIUM - SERUM 3.7 mmol/L (3.5-5.1); PROTEIN - SERUM 6.7 g/dL (6.4-8.2); SODIUM 139 mmol/L (136-145); eGFR NON AFRICAN AMERICAN > 90 mL/min (90-120)
[2018-12-15 05:30] LABS: UREA NITROGEN 6 mg/dL (7-18)
--- NOTE | 2018-12-15 08:00 | NUR ---
ASSESSMENT PER FLOW SHEET. PT IS WITHOUT DISTRESS.CALL LIGHT IN REACH
[2018-12-15 08:55] VITALS: BP 139/89
[2018-12-15] MEDS ORDERED: MUCINEX600 MG PO (11:55)
[2018-12-15] MEDS ORDERED: TESSALON PERLE100 MG PO (11:55)
[2018-12-15] MEDS ORDERED: PROTONIX40 MG PO (11:55)
[2018-12-15] MEDS ORDERED: FLORAJEN3 CAPS460 MG PO (11:55)
[2018-12-15] MEDS ORDERED: LEVOFLOXACIN500 MG PO (11:56)
--- NOTE | 2018-12-15 12:51 | MORECARE ---
CASE MANAGEMENT DISCHARGE SUMMARY PATIENT: MARIA TERESA MCKEON UNIT: [id number] ADM DATE: 12/10/18 AGE: 78 : 41 SEX: M ROOM/BED: D.2218 AUTHOR: ROSELYNDOC PHYSICIAN: REFERRING PHYSICIAN: AYO RAMIREZ MD DATE OF SERVICE: 12/15/18 Discharge Plan Patient Name: MARIA TERESA MCKEON Facility: [facility]:[place] : 1940 Planned Disposition: Home Anticipated Discharge Date: Discharge Date: Expected LOS: Initial Reviewer: [email or web address] Initial Review Date: 12/10/2018 Generated: 12/15/18 1:51 pm Comments DCP- Discharge Planning Updated by [email or web address]: Clotilde Lane on 12/15/18 11:[address] Patient Name: MARIA TERESA MCKEON Encounter No: [id number] : 1940 Primary Insurance: MEDICARE A & B Anticipated DC Date: Planned Disposition: Home External Planned Provider: : DCP follow-up note: Patient and family in agreement with discharge plan. No changes to plan. Case management will follow and assist as needed. Clotilde Lane DCP- Discharge Planning Updated by [id number]: Gabriella Palomo on 12/13/18 1:[address] Patient Name: MARIA TERESA MCKEON Admission Status: Elective Accout number: [id number] Admission Date: 12-10-2018 : 1940 Admission Diagnosis:NEUTROPENIA, UNSPECIFIED Attending: AYO RAMIREZ Current LOS: 3 Anticipated DC Date: Planned Disposition: Home Primary Insurance: MEDICARE A & B Discharge Planning Comments: CM MET WITH PATIENT AND HIS ABOUT DC PLANNING/NEEDS. DENIES ANY NEEDS AND PLANS TO BE DC'D HOME WITH . CM TO FOLLOW AND ASSIST. Glass Rolling Machine Operator: Gabriella Palomo DCPIA - Discharge Planning Initial Assessment Updated by [email or web address]: Gabriella Palomo on 12/13/18 2:26 pm * Is the patient Alert and Oriented? Yes * PCP EDMONDS * Pharmacy [place] * Preadmission Environment Home with Family * ADLs Independent * Equipment CPAP * Additional services required to return to the preadmission environment? No * Can the patient safely return to the preadmission environment? Yes * Has this patient been hospitalized within the prior 30 days at any hospital? Yes Coverage Notice Reviewer: [email or web address] Igor Laen Notice Issued Date-Time: 12/15/2018 12:00 Notice Type: IM Discharge Notice Notice Delivered To: Patient Relationship to Patient: Self Director Of Community Services Name: Delivery Method: HAND - Hand Delivered Olga Days: Prior Verbal Notification: Recipient Understood Notice: Yes Recipient Signature: Yes Med Rec Note Co-signed by Attending: Coverage Notice Comment: IMM explained, signed, given, copy placed in MR Last DP export: 12/13/18 1:34 p Patient Name: MARIA TERESA MCKEON Page 39709 at 1251 All edits/amendments must be made on the electronic document DICTATION DATE: 12/15/18 1251 PETROLEUM SAMPLER: ENID 12/15/18 1251 RPT#: [id number] DC DATE: STATUS: ADM IN [facility] [address] [place] [address] END OF REPORT
--- NOTE | 2018-12-15 13:16 | NUR ---
DISCHARGE INSTRUCTIONS,STATES UNDERSTANDING. IV DCD WITH CATH TIP INTACT.
--- NOTE | 2018-12-15 13:20 | NUR ---
LEFT UNIT VIA WHEELCHAIR FOR TRANSPORT HOME
--- NOTE | 2018-12-16 13:10 | MORECARE ---
CASE MANAGEMENT DISCHARGE SUMMARY PATIENT: MARIA TERESA MCKEON UNIT: [id number] ADM DATE: 12/10/18 AGE: 78 : 41 SEX: M ROOM/BED: D.2218 AUTHOR: ROSELYNDOC PHYSICIAN: REFERRING PHYSICIAN: AYO RAMIREZ MD DATE OF SERVICE: 12/16/18 Discharge Plan Patient Name: MARIA TERESA MCKEON Facility: [facility]:[place] : 1940 Planned Disposition: Home Anticipated Discharge Date: Discharge Date: 12/15/2018 Expected LOS: 0 Initial Reviewer: [email or web address] Initial Review Date: 12/10/2018 Generated: 12/16/18 2:09 pm Comments DCP- Discharge Planning Updated by [email or web address]: Clotilde Lane on 12/15/18 11:[address] Patient Name: MARIA TERESA MCKEON Encounter No: [id number] : 1940 Primary Insurance: MEDICARE A & B Anticipated DC Date: Planned Disposition: Home External Planned Provider: : DCP follow-up note: Patient and family in agreement with discharge plan. No changes to plan. Case management will follow and assist as needed. Clotilde Lane DCP- Discharge Planning Updated by [email or web address]: Gabriella Palomo on 12/13/18 1:[address] Patient Name: MARIA TERESA MCKEON Admission Status: Elective Accout number: [id number] Admission Date: 12-10-2018 : 1940 Admission Diagnosis:NEUTROPENIA, UNSPECIFIED Attending: AYO RAMIREZ Current LOS: 3 Anticipated DC Date: Planned Disposition: Home Primary Insurance: MEDICARE A & B Discharge Planning Comments: CM MET WITH PATIENT AND HIS ABOUT DC PLANNING/NEEDS. DENIES ANY NEEDS AND PLANS TO BE DC'D HOME WITH . CM TO FOLLOW AND ASSIST. Office Machines Teacher: Gabriella Palomo DCPIA - Discharge Planning Initial Assessment Updated by [email or web address]: Gabriella Palomo on 12/13/18 2:26 pm * Is the patient Alert and Oriented? Yes * PCP EDMON[facility] * Pharmacy [place] * Preadmission Environment Home with Family * ADLs Independent * Equipment CPAP * Additional services required to return to the preadmission environment? No * Can the patient safely return to the preadmission environment? Yes * Has this patient been hospitalized within the prior 30 days at any hospital? Yes Coverage Notice Reviewer: [email or web address] Igor Reedery Domingo Notice Issued Date-Time: 12/15/2018 12:00 Notice Type: IM Discharge Notice Notice Delivered To: Patient Relationship to Patient: Self Space Control Agent Name: Delivery Method: HAND - Hand Delivered Olga Days: Prior Verbal Notification: Recipient Understood Notice: Yes Recipient Signature: Yes Med Rec Note Co-signed by Attending: Coverage Notice Comment: IMM explained, signed, given, copy placed in Last DP export: 12/15/18 11:51 am Patient Name: MARIA TERESA MCKEON Page 16458 at 1310 All edits/amendments must be made on the electronic document DICTATION DATE: 12/16/18 1309 UNHAIRING INSPECTOR: ENID 12/16/18 1309 RPT#: [id number] DC DATE:12/15/18 STATUS: DIS IN [facility] [address] [place] [address] END OF REPORT
== END 2018-12-15 13:20 | disposition home or self-care (01) | DRG 871 ==
LOC: D.MS 12:15
PROVIDERS: Internal Medicine Hematology & Oncology; ADMIT Internal Medicine Nephrology; ATTEND Internal Medicine Nephrology
DX: A41.9 Sepsis, unspecified organism (principal); G93.41 Metabolic encephalopathy; J18.9 Pneumonia, unspecified organism; N17.9 Acute kidney failure, unspecified; C34.90 Malignant neoplasm of unspecified part of unspecified bronchus or lung; E87.1 Hypo-osmolality and hyponatremia; D70.9 Neutropenia, unspecified; R50.81 Fever presenting with conditions classified elsewhere; D64.9 Anemia, unspecified; I48.91 Unspecified atrial fibrillation; E87.8 Other disorders of electrolyte and fluid balance, not elsewhere classified; E11.9 Type 2 diabetes mellitus without complications; J43.9 Emphysema, unspecified; M19.90 Unspecified osteoarthritis, unspecified site; E03.9 Hypothyroidism, unspecified

== ENCOUNTER 2019-03-02 13:53 | Outpatient (CLI) | payer MEDICARE, OTHER ==
[~2019-03-02] VITALS: Ht 190.5 cm; Wt 87.7 kg
[~2019-03-02 13:53] MED LIST changes: +FLORAJEN3 CAPS460 MG PO; +LEVOFLOXACIN500 MG PO; +MUCINEX600 MG PO; +PROTONIX40 MG PO; +TESSALON PERLE100 MG PO
[2019-03-02 14:21] VITALS: Ht 190.5 cm; Wt 87.7 kg
[2019-03-02] MEDS ORDERED: TRAMADOL HCL E100 M1 PO (14:39)
--- NOTE | 2019-03-02 19:51 | NUR ---
1929 instructions given to pt and family. tolerating blood well
--- NOTE | 2019-03-02 21:13 | NUR ---
2044 port flush with ns and heparin flush 3ml iv. needle intact and bandaid applied
== END 2019-03-02 21:00 | disposition home or self-care (01) ==
LOC: D.OPS 13:53
PROVIDERS: ATTEND Internal Medicine Hematology & Oncology
DX: D64.9 Anemia, unspecified (principal)

== ENCOUNTER 2019-03-19 09:06 | Outpatient (CLI) | payer MEDICARE, OTHER ==
[2019-03-02 14:21] VITALS: BMI 24.1
[~2019-03-19 09:06] MED LIST changes: +TRAMADOL HCL E100 M1 PO
--- NOTE | 2019-03-26 10:39 | EC ---
PATIENT:MARIA TERESA MCKEON JR DATE OF SERVICE: SEX: M MEDICAL RECORD: [id number] DATE OF : 42 [facility] AGE OF PATIENT: 78 ADMISSION DATE: 03/19/19 REFERRING PHYSICIAN: INTERPRETING PHYSICIAN: ANA LAURA CARBONE MD ECHOCARDIOGRAM REPORT ECHO CHARGES 4 ECHO COMPLETE Date: 03/19/19 CLINICAL DIAGNOSIS: MALIGNANT LUNG TUMOR ECHOCARDIOGRAPHIC MEASUREMENTS (adult normal given) AC root (d.<3.7cm) 3.8 cm LV Septum d (<1.2 cm> 1.5 cm Valve Excursion 1.7 cm LV Septum (systole) 1.7 cm Left Atria (s.<4.0cm> 3.1 cm LVPW d(<1.2cm) 1.3 cm RV (d.<2.3cm) 2.1 cm LVPW (sytole) 1.9 cm LV diastole(<5.6CM) 4.0 cm MV E-F(>70mm/sec) cm LV systole 2.7 cm LVOT Diameter 2.0 cm MV exc.(>10mm) cm Est.ejection fraction (50-75%) % DOPPLER: LVIT cm/sec A 137 cm/sec E 78.0 cm/sec LA cm/sec RVSP 30.0 mmHg LVOT 122 cm/sec AOP1/2T m/s Asc. Ao 126 cm/sec RVOT 72.0 cm/sec RA cm/sec PA 93.0 cm/sec AV Gradient Peak 6.3 mmHg AV Mean 4.1 mmHg AV Area 2.8 cm MV Gradient Peak 12.2 mmHg MV Mean 3.8 mmHg MV Area cm COMMENTS: Leather Coverer: 1 CRICKET STOUTOE Pocketbook Maker: 1 Dr. Carbone TAPE# PACS Pericardial Effusion N DATE OF SERVICE: FINDINGS: 1. Left ventricular chamber size is within normal limits. Left ventricular systolic function is normal at 55%. 2. Left atrium is within normal limits at 3.1 cm. Right atrium and right ventricular chamber sizes are mildly dilated. 3. Valvular structures have normal structure and motion. 4. Doppler interrogation reveals trace aortic insufficiency, trace tricuspid regurgitation, no other valvular insufficiency or stenosis. Pulmonary systolic ECHOCARDIOGRAM REPORT [id number] MARIA TERESA MCKEON J pressure is estimated at 30 mmHg. 5. No evidence of pericardial effusion or left ventricular thrombus. TRANSINT:[id number] Voice Confirmation ID: [id number] DOCUMENT ID: [id number] ANA LAURA CARBONE MD at 1039 CC: [id number] DICTATION DATE: 03/19/19 1330 PEDIATRIC SURGEON: 03/19/19 1352 PRE [facility] [address] [id number]
== END 2019-03-19 09:07 | disposition home or self-care (01) ==
LOC: D.ECHO 09:06 → D.RT 10:00
DX: C34.12 Malignant neoplasm of upper lobe, left bronchus or lung (principal)

== ENCOUNTER 2019-03-31 10:35 | Inpatient (IN) | payer MEDICARE, OTHER ==
[~2019-03-31] VITALS: Ht 190.5 cm; Wt 88.9 kg
[2019-03-31] MEDS ORDERED: TESSALON PERLE100 MG PO (11:08)
[2019-03-31] MEDS ORDERED: MARINOL2.5 MG PO (11:09)
[2019-03-31] MEDS ORDERED: FLORAJEN3 CAPS460 MG PO (11:10)
[2019-03-31] MEDS ORDERED: LUPRON INJ (11:24)
[2019-03-31 13:14] LABS: ALBUMIN 3.6 g/dL (3.4-5.0); ALKALINE PHOSPHATASE 80 U/L (46-116); ALT (SGPT) 101 U/L (10-68); BILIRUBIN - TOTAL 0.25 mg/dL (0.2-1.3); CALC OSMOLALITY 272 mosm/kg (275-300); CALCIUM 9.1 mg/dL (8.5-10.1); CARBON DIOXIDE 27.3 mmol/L (21.0-32.0); CHLORIDE - SERUM 101 mmol/L (98-107); GLUCOSE 133 mg/dL (74-106); POTASSIUM - SERUM 4.5 mmol/L (3.5-5.1); PROTEIN - SERUM 7.8 g/dL (6.4-8.2); SODIUM 135 mmol/L (136-145); UREA NITROGEN 15 mg/dL (7-18); eGFR NON AFRICAN AMERICAN 77 mL/min (90-120)
[2019-03-31 13:29] LABS: HEMATOCRIT 31.1 % (42.0-54.0); HEMOGLOBIN 10.4 g/dL (13.5-17.5); MCHC 33.4 g/dL (31.0-37.0); MCV 101.6 fL (80.0-100.0); MEAN PLATELET VOLUME 9.6 fL (7.4-10.4); RBC 3.06 10x6/uL (4.20-6.10); RDW 16.3 % (11.5-14.5); WBC 11.3 10x3/uL (4.8-10.8)
[2019-03-31 13:37] LABS: APTT 27.6 SECONDS (22.8-39.4); INR 1.06 (0.85-1.17); PROTIME 13.3 SECONDS (11.6-15.0)
[2019-03-31 13:48] LABS: APPEARANCE CLEAR (CLEAR); BILIRUBIN NEGATIVE (NEGATIVE); COLOR YELLOW (YELLOW); GLUCOSE 50 mg/dL (NEGATIVE); KETONE NEGATIVE (NEGATIVE); NITRITE NEGATIVE (NEGATIVE); PROTEIN NEGATIVE (NEGATIVE); UROBILINOGEN NORMAL (NORMAL)
[2019-04-03] VITALS (28 sets, daily range): BP systolic 114–159; BP diastolic 58–92; BMI 23.7; BMI 24.0
--- NOTE | 2019-04-03 18:22 | NUR ---
1215-RECIEVD FROM RECOVERY ROOM ALERT AWAKE-SIMPLE MASK AT 10L AND CHANGED TO 4L FIBRE TECHNOLOGIST-SR ON MONITOR-L LATERAL CHEST TUBES X2-20CM NO AIR LEAK-SANG DRAINAGE AT THIS TIME-L JUGULAR IV IN SITU-TO PLASMA LYTE AT 100ML/H-HOB ELEVATED TO 30 DEGREES-R RADIAL JULEE WITH GOOD WAVE FORM TO MONITOR-RON CATH-PORT CXR DONE 1330- AT [facility] AND DR CONNORS SPOKE WITH BOTH PT AND 1345-MORPHINE STRIP WINDER SETUP AND SHOWN TO PT -PT ABLE TO REPEAT DEMONSTRATION 1550-CLEAR LIQUIDS TAKEN 1730- AT BEDSIDE -PT ABLE TO USE MORPHINE STRIP WINDER
--- NOTE | 2019-04-03 19:00 | NUR ---
REPORT RECEIVED. INITIAL ASSESSMENT COMPLETE. PT AWAKE ALERT AND ORIENTED STATES PAIN TOLERABLE WITH QUALITY CONTROL MORPHINE. RESP EVEN NONLABORED CLEAR DIMINISHED TO LEFT SIDE. PT HAS DRESSING TO LEFT FLANK CLEAN DRY AND INTACT. CT X 2 NO AIR LEAK 20 CM SUCTION SEROSANGUINOUS DRAINAGE NOTED TO TUBING. RON TO CRITICORE. SEE IV FLOWSHEET FOR IV FLUIDS. RIGHT RAD ARTLINE ZEROED AND CALIBRATED WITH ARMBOARD IN PLACE. BED LOW POSITION SIDERAILS UP TIMES 3 FOR BED MOBILITY AND SAFETY CL AND QUALITY CONTROL BUTTON IN REACH WILL CONTINUE TO MONITOR. CM READING SR WITHOUT ECTOPY ALARMS ON AND AUDIBLE
--- NOTE | 2019-04-03 21:00 | NUR ---
ANSWERED PTS CALL LIGHT HE HAD ACCIDENTLY PUSHED NURSE CALL JUST WANTING TV ON ASSISTED WITH REMOTE THEN REPOSITIONED FOR COMFORT DENIES NEEDS AT THIS TIME WILL CONTINUE TO MONITOR CPOC
--- NOTE | 2019-04-03 23:00 | NUR ---
REASSESSMENT MADE NO CHANGES PT PLEASANT DENIES PAIN STATES USING BEDSPREAD SEAMER NEEDED AND USING IS INSTRUCTED PER RT. VSS CPOC
[2019-04-04] VITALS (24 sets, daily range): BP systolic 102–143; BP diastolic 63–79; Ht 190.5 cm; Wt 88.9 kg
--- NOTE | 2019-04-04 03:00 | NUR ---
REASSESSMENT COMPLETE. VSS CPOC
--- NOTE | 2019-04-04 04:45 | NUR ---
RADIOLOGY HERE FOR AM CHEST XRAY. PT C/O CT FEELING LIKE IT WAS PULLED WHEN BOARD WAS PLACED FOR X RAY. CHECKED SITE CLEAN INTACT SEROSANGUINOUS DRAINAGE STILL DRAINING WILL CLOSELY MONITOR
[2019-04-04 05:31] LABS: HEMATOCRIT 29.1 % (42.0-54.0); HEMOGLOBIN 9.6 g/dL (13.5-17.5); MCH 33.6 pg (26.0-34.0); MCV 101.7 fL (80.0-100.0); MEAN PLATELET VOLUME 8.8 fL (7.4-10.4); RBC 2.86 10x6/uL (4.20-6.10); RDW 15.5 % (11.5-14.5); WBC 13.2 10x3/uL (4.8-10.8)
[2019-04-04 05:48] LABS: ALBUMIN 2.8 g/dL (3.4-5.0); ALKALINE PHOSPHATASE 59 U/L (46-116); ALT (SGPT) 67 U/L (10-68); BILIRUBIN - TOTAL 0.62 mg/dL (0.2-1.3); CALC OSMOLALITY 268 mosm/kg (275-300); CARBON DIOXIDE 26.9 mmol/L (21.0-32.0); CHLORIDE - SERUM 99 mmol/L (98-107); CREATININE - SERUM 0.6 mg/dL (0.6-1.3); GLUCOSE 172 mg/dL (74-106); POTASSIUM - SERUM 4.2 mmol/L (3.5-5.1); PROTEIN - SERUM 6.4 g/dL (6.4-8.2); SODIUM 133 mmol/L (136-145); UREA NITROGEN 9 mg/dL (7-18); eGFR NON AFRICAN AMERICAN > 90 mL/min (90-120)
--- NOTE | 2019-04-04 06:15 | NUR ---
COMPLETE CHG BATH AND COMPLETE LINEN CHANGE PT TOLERATED WELL
--- NOTE | 2019-04-04 13:24 | NUR ---
DR CONNORS HERE ON ROUNDS. PT OOB TO CHAIR WITH PT AND ART LINE L RADIAL DCD ORDERED. ARIADNE SALINAS DCD. DR RAMIREZ HERE ON ROUNDS.
[2019-04-04 15:16] LABS: % SATURATION 9 % (15-55); IRON 21 ug/dl (35-150); TOTAL IRON BIND CAPACITY 221 ug/dl (260-445); UNSAT IRON BIND CAPACITY 200 ug/dl (150-375)
--- NOTE | 2019-04-04 15:41 | NUR ---
PT SITTING UP IN CHAIR. VSS. AT .
--- NOTE | 2019-04-04 18:04 | NUR ---
ASSIST PT BACK TO BED. POSITIONED FOR COMFORT.
--- NOTE | 2019-04-04 19:00 | NUR ---
REPORT RECEIVED. RECEIVED PATIENT IN BED AWAKE, ALERT AND ORIENTED X 4. ASSESSMENT COMPLETED PER FLOW SHEET WITH NO ACUTE DISTRESS OBSERVED. MONITORS CONNECTED TO PATIENT WITH ALARMS SET. VSS. LEFT CHEST TUBES INTACT/SECURE/PATENT CONNECTED TO 20 CM SUCTION DRAINING SEROSANGUINEOUS FLUID INTO COLLECTION CHAMBER. CALL LIGHT IN REACH AND ABLE TO UTILIZE TO MAKE NEEDS KNOWN
--- NOTE | 2019-04-04 21:00 | NUR ---
CALLED TO ROOM. ASSISTED WITH URINAL, PATIENT VOIDED SMALL AMOUNT APPROX 50 MLS CLEAR YELLOW URINE WITHOUT DIFF. VSS. CALL LIGHT IN REACH
--- NOTE | 2019-04-04 23:00 | NUR ---
REASSESSMENT COMPLETED PER FLOW SHEET WITH NO ACUTE DISTRESS OBSERVED. VSS
[2019-04-05] VITALS (24 sets, daily range): BP systolic 97–141; BP diastolic 60–92
--- NOTE | 2019-04-05 01:00 | NUR ---
RESTING WITH EYES CLOSED, EASILY ROUSED AND ALERT.VSS. ASSISTED WITH REPOSITIONING FOR COMFORT. USED URINAL, VOIDED 225ML CONCENTRATED URINE WITHOUT DIFF.
--- NOTE | 2019-04-05 03:00 | NUR ---
RESTING WITH EYES CLOSED, EASILY ROUSED AND ALERT. VSS. CALL LIGTH IN REACH. REASSESSMENT COMPLETED PER FLOW SHEET WITH NO ACUTE DISTRESS OBSERVED
--- NOTE | 2019-04-05 05:00 | NUR ---
AWAKE AND ALERT. VSS.
[2019-04-05 05:44] LABS: HEMATOCRIT 27.1 % (42.0-54.0); HEMOGLOBIN 9.1 g/dL (13.5-17.5); MCH 33.8 pg (26.0-34.0); MCHC 33.6 g/dL (31.0-37.0); MCV 100.7 fL (80.0-100.0); MEAN PLATELET VOLUME 8.5 fL (7.4-10.4); RBC 2.69 10x6/uL (4.20-6.10); RDW 15.5 % (11.5-14.5); WBC 12.2 10x3/uL (4.8-10.8)
[2019-04-05 06:06] LABS: ALBUMIN 2.6 g/dL (3.4-5.0); ALKALINE PHOSPHATASE 59 U/L (46-116); BILIRUBIN - TOTAL 0.56 mg/dL (0.2-1.3); CALC OSMOLALITY 266 mosm/kg (275-300); CALCIUM 8.3 mg/dL (8.5-10.1); CARBON DIOXIDE 26.2 mmol/L (21.0-32.0); CHLORIDE - SERUM 99 mmol/L (98-107); CREATININE - SERUM 0.6 mg/dL (0.6-1.3); GLUCOSE 155 mg/dL (74-106); POTASSIUM - SERUM 3.9 mmol/L (3.5-5.1); PROTEIN - SERUM 6.3 g/dL (6.4-8.2); SODIUM 133 mmol/L (136-145); UREA NITROGEN 7 mg/dL (7-18); eGFR NON AFRICAN AMERICAN > 90 mL/min (90-120)
[2019-04-05 06:07] LABS: ALT (SGPT) 44 U/L (10-68)
--- NOTE | 2019-04-05 12:45 | NUR ---
DR CONNORS HERE ON ROUNDS. BOTH CT'S TAKEN OFF SUCTION BY DR CONNORS.
--- NOTE | 2019-04-05 17:24 | NUR ---
1500- DSNG CHANGED TO CT INSERTION SITE. VERY SM AMT SEROSANGEOUS DRAINAGE ON DSNG. PT KACI WELL.
--- NOTE | 2019-04-05 18:05 | NUR ---
ASST BACK TO BED. PT KACI WELL. WALKER USED.
--- NOTE | 2019-04-05 19:00 | NUR ---
REPORT RECEIVED. RECEIVED PAITENT IN BED, RESTING QUIETLY WITH EYES CLOSED. EASILY ROUSED AND ALERT. ORIENTED X 4. ASSESSMENT COMPLETED PER FLOW SHEET WITH NO ACUTE DISTRESS OBSERVED. MONITORS CONNECTED TO PATIENT WITH ALARMS SET. VSS. LEFT CHEST TUBES INTACT/SECURE/PATENT TO WATER SEAL DRAINING SEROSANGUINEOUS FLUID INTO COLLECTION CHAMBER. CALL LIGHT IN REACH AND ABLE TO UTILIZE TO MAKE NEEDS KNOWN.
--- NOTE | 2019-04-05 21:00 | NUR ---
RESTING WITH EYES CLOSED, EASILY ROUSED AND ALERT. VSS. CALL LIGHT IN REACH
--- NOTE | 2019-04-05 23:00 | NUR ---
AWAKE AND ALERT. VSS. REASSESSMENT PER FLOW SHEET WTIH NO ACUTE DISTRESS OBSERVED. CALL LIGHT IN REACH
[2019-04-06] VITALS (29 sets, daily range): BP systolic 91–177; BP diastolic 50–75
--- NOTE | 2019-04-06 01:00 | NUR ---
RESTING WITH EYES CLOSED, EASILY ROUSED AND ALERT. VSS. CALL LIGHT IN REACH.
--- NOTE | 2019-04-06 03:00 | NUR ---
RESTING WITH EYES CLOSED, EASILY ROUSED AND ALERT. REASSESSMENT COMPLETED PER FLOW SHEET WTIH NO ACUTE DISTRESS OBSERVED. CALL LIGHT IN REACH
--- NOTE | 2019-04-06 05:00 | NUR ---
RESTING WITH EYES CLOSED, ROUSES EASILY. VSS
[2019-04-06 06:27] LABS: HEMATOCRIT 26.5 % (42.0-54.0); HEMOGLOBIN 8.9 g/dL (13.5-17.5); MCH 33.7 pg (26.0-34.0); MCHC 33.6 g/dL (31.0-37.0); MCV 100.4 fL (80.0-100.0); MEAN PLATELET VOLUME 9.3 fL (7.4-10.4); RBC 2.64 10x6/uL (4.20-6.10); RDW 15.4 % (11.5-14.5); WBC 12.5 10x3/uL (4.8-10.8)
--- NOTE | 2019-04-06 06:40 | NUR ---
DR. COTTO HERE. EXAMINED PATIENT. AWARE OF ELEVATED BP THIS AM
--- NOTE | 2019-04-06 06:40 | NUR ---
DR. COTTO HERE, EXAMED PATIENT AWARE OF ELEVATED BP THIS AM.
[2019-04-06 06:50] LABS: ALBUMIN 2.5 g/dL (3.4-5.0); ALKALINE PHOSPHATASE 54 U/L (46-116); ALT (SGPT) 48 U/L (10-68); CALCIUM 8.3 mg/dL (8.5-10.1); CARBON DIOXIDE 28.6 mmol/L (21.0-32.0); CHLORIDE - SERUM 96 mmol/L (98-107); CREATININE - SERUM 0.6 mg/dL (0.6-1.3); GLUCOSE 146 mg/dL (74-106); POTASSIUM - SERUM 3.9 mmol/L (3.5-5.1); PROTEIN - SERUM 6.4 g/dL (6.4-8.2); SODIUM 132 mmol/L (136-145); eGFR NON AFRICAN AMERICAN > 90 mL/min (90-120)
[2019-04-06 06:51] LABS: CALC OSMOLALITY 266 mosm/kg (275-300); UREA NITROGEN 11 mg/dL (7-18)
--- NOTE | 2019-04-06 07:30 | NUR ---
SHIFT REPORT RECEIVED. AWAKE AND ALERT. RATES PAIN 4/10. MORPHINE RN CORRECTIONS IN USE. LIJ CVL WITH PLASMOLYTE AT 30ML/HR. CT X 2 LEFT CHEST TO WATER SEAL. NO AIR LEAK NOTED. NEHA BACK INCISION WITH DRESSING C/D/I. ON 2L OF O2 VIA NC. ASSISTED UP TO CHAIR. CALL LIGHT IN REACH. WILL CONTINUE TO MONITOR.
--- NOTE | 2019-04-06 10:22 | NUR ---
CT'S DC'D BY DR. CONNORS. PT RESTING IN BED. SPOUSE AT BEDSIDE. WILL CONTINUE TO MONITOR.
--- NOTE | 2019-04-06 13:06 | NUR ---
Nutrition Follow-up: Diet: Diabetic PO intake: 45% avg x 6 meals No new wt - daily wts ordered No BMs recorded Labs noted: Glu 146, Na 132, Alb 2.5, Ca 8.3 Meds noted: Glucophage, Marinol, Micro K, Januvia, Amaryl, Lasix, Humulin -Continue current diet as tolerated. -Offer Glucerna with meals. -Need new wt. -RD following.
--- NOTE | 2019-04-06 14:18 | NUR ---
CHG BATH GIVEN. COMPLETE LINEN CHANGE. PT RESTING IN CHAIR. NO FURTHER NEEDS AT THIS TIME. WILL CONTINUE TO MONITOR.
--- NOTE | 2019-04-06 15:23 | NUR ---
RE-ASSESSMENT COMPLETED. PT RESTING COMFORTABLY IN CHAIR. NO ACUTE CHANGES FROM PREVIOUS ASSESSMENT. ORAL TEMP 98.2. WARM BLANKET PROVIDED. DENIES FURTHER NEEDS. WILL CONTINUE TO MONITOR.
--- NOTE | 2019-04-06 19:15 | NUR ---
REPORT RECIEVED. CARE ASSUMED. PT IS AWAKE AND ALERT SITTING IN CHAIR AT BEDSIDE. DENIES NEEDS. NO SIGNS OF DISTRESS.
--- NOTE | 2019-04-06 20:30 | NUR ---
ASSISTED BACK TO BED. POSITIONED FOR COMFORT WITH PILLOWS.
--- NOTE | 2019-04-06 21:45 | NUR ---
PT NOTED TO HAVE BRIEF PERIODS OF APNEA WHILE ALEEPING. PT STATES THAT HE HAS SLEEP APNEA AND HAS A CPAP MACHINE AT HOME BUT DOES NOT USE IT DUE TO IT KEEPING HIS AWAKE.
[2019-04-07] VITALS (12 sets, daily range): BP systolic 90–126; BP diastolic 52–78
--- NOTE | 2019-04-07 01:30 | NUR ---
RESTING QUIETLY. VSS.
--- NOTE | 2019-04-07 05:00 | NUR ---
ASSISTED OOB TO USE RESTROOM. INCONTINENT OF LIQUID STOOL IN ROUTE TO BATHROOM.
[2019-04-07 06:21] LABS: HEMATOCRIT 27.2 % (42.0-54.0); HEMOGLOBIN 9.1 g/dL (13.5-17.5); MCH 33.3 pg (26.0-34.0); MCHC 33.5 g/dL (31.0-37.0); MCV 99.6 fL (80.0-100.0); MEAN PLATELET VOLUME 8.8 fL (7.4-10.4); RBC 2.73 10x6/uL (4.20-6.10); RDW 15.3 % (11.5-14.5); WBC 10.1 10x3/uL (4.8-10.8)
[2019-04-07 06:36] LABS: ALBUMIN 2.7 g/dL (3.4-5.0); ALKALINE PHOSPHATASE 62 U/L (46-116); ALT (SGPT) 44 U/L (10-68); BILIRUBIN - TOTAL 0.35 mg/dL (0.2-1.3); CALC OSMOLALITY 274 mosm/kg (275-300); CALCIUM 8.7 mg/dL (8.5-10.1); CARBON DIOXIDE 29.6 mmol/L (21.0-32.0); CHLORIDE - SERUM 100 mmol/L (98-107); CREATININE - SERUM 0.7 mg/dL (0.6-1.3); GLUCOSE 100 mg/dL (74-106); POTASSIUM - SERUM 3.6 mmol/L (3.5-5.1); PROTEIN - SERUM 6.6 g/dL (6.4-8.2); SODIUM 137 mmol/L (136-145); eGFR NON AFRICAN AMERICAN > 90 mL/min (90-120)
[2019-04-07 06:37] LABS: UREA NITROGEN 15 mg/dL (7-18)
[2019-04-07] MEDS ORDERED: PERCOCET 10-321 EAC1 PO (09:33)
--- NOTE | 2019-04-07 11:20 | MORECARE ---
CASE MANAGEMENT DISCHARGE SUMMARY PATIENT: MARIA TERESA MCKEON JR UNIT: [id number] ADM DATE: 04/03/19 AGE: 78 : 41 SEX: M ROOM/BED: [facility] AUTHOR: SANDY DEMPSEY PHYSICIAN: REFERRING PHYSICIAN: ANGELINA CONNORS MD DATE OF SERVICE: 04/07/19 Discharge Plan Patient Name: MARIA TERESA MCKEON [facility] [facility] 1940 Planned Disposition: Anticipated Discharge Date: Discharge Date: Expected LOS: Initial Reviewer: [email or web address] Initial Review Date: 04/06/2019 Generated: 04/07/19 12:19 pm Patient Name: MARIA TERESA MCKEON Page [id number] at 1120 All edits/amendments must be made on the electronic document DICTATION DATE: 04/07/19 1119 SENIOR RESEARCH ENGINEER: ENID 04/07/19 1119 RPT#: [id number] DC DATE: STATUS: ADM IN [facility] [address] [place] [address] END OF REPORT
--- NOTE | 2019-04-07 11:32 | MORECARE ---
CASE MANAGEMENT DISCHARGE SUMMARY PATIENT: MARIA TERESA MCKEON JR UNIT: [id number] ADM DATE: 04/03/19 AGE: 78 : 41 SEX: M [facility] AUTHOR: ROSELYN,DOC PHYSICIAN: REFERRING PHYSICIAN: ANGELINA CONNORS MD DATE OF SERVICE: 04/07/19 Discharge Plan Patient Name: MARIA TERESA MCKEON Facility: [facility]:[place] : 1940 Planned Disposition: Home Anticipated Discharge Date: Discharge Date: Expected LOS: Initial Reviewer: [email or web address] Initial Review Date: 04/06/2019 Generated: 04/07/19 12:31 pm Comments DCP- Discharge Planning Updated by [email or web address]: Greta Aggarwal on 04/07/19 10:[address] Patient Name: MARIA TERESA MCKEON Encounter No: [id number] : 1940 Primary Insurance: MEDICARE A & B Anticipated DC Date: Planned Disposition: External Planned Provider: : Colleen/Virgen GARZA signed 04/07/19 @ 1018 DCP follow-up note: Patient and family in agreement with discharge plan. No changes to plan. Case management will follow and assist as needed. Greta Aggarwal DCP- Discharge Planning Updated by [email or web address]: Greta Aggarwal on 04/07/19 10:[address] LATE ENTRY 04/06/19 Patient Name: MARIA TERESA MCKEON Admission Status: Elective Accout number: [id number] Admission Date: 04-03-2019 : 1940 Admission Diagnosis: Attending: ANGELINA CONNORS Current LOS: 4 Anticipated DC Date: Planned Disposition: Primary Insurance: MEDICARE A & B Discharge Planning Comments: CM met with patient at bedside after explaining CM role and obtaining verbal consent. Patient lives at home with his Manisha where he is independent with his care and plans to return there upon discharge. Patient feels this would be a safe discharge. CM discussed availability / needs of home health and medical equipment. Patient denies any discharge needs at this time. Patient states he will have his family drive him home upon discharge. CM will continue to follow and assist as needed with discharge planning / needs. Parks And Recreation Worker: Greta Aggarwal DCPIA - Discharge Planning Initial Assessment Updated by [email or web address]: Greta Aggarwal on 04/07/19 11:21 am * Is the patient Alert and Oriented? Yes * How many steps to enter\exit or inside your home? * PCP [facility] * Pharmacy [facility] * Preadmission Environment Home with Family * ADLs Independent * Equipment Walker * List name and contact numbers for known caregivers / representatives who currently or will assist patient after discharge: MANISHA MCKEON - - [phone] ROSIBEL MCKEON - DAUGHTER- [phone] * Verbal permission to speak to the caregivers and representatives has been obtained from the patient. Yes * Community resources currently utilized None * Additional services required to return to the preadmission environment? No * Can the patient safely return to the preadmission environment? Yes * Has this patient been hospitalized within the prior 30 days at any hospital? No Coverage Notice Reviewer: [id number] - Greta Aggarwal Notice Issued Date-Time: 04/07/2019 11:28 Notice Type: IM Discharge Notice Notice Delivered To: Patient Relationship to Patient: Self Forest Practices Field Coordinator Name: Delivery Method: HAND - Hand Delivered Olga Days: Prior Verbal Notification: Recipient Understood Notice: Yes Recipient Signature: Yes Med Rec Note Co-signed by Attending: Coverage Notice Comment: Last DP export: 04/07/19 10:20 Patient Name: MARIA TERESA MCKEON Page [id number] at 1132 All edits/amendments must be made on the electronic document DICTATION DATE: 04/07/19 113 SAW MAN: ENID 04/07/19 1132 RPT#: [id number] DC DATE: STATUS: ADM IN [facility] [address] [place] [address] END OF REPORT
--- NOTE | 2019-04-07 12:01 | NUR ---
1130: Ashleigh ALLEN. SITE DRESSED WITH 2X2 AND TEGADERM. 1140: DISCHARGE PAPERWORK REVIEWED WITH AND PATIENT. 1200: DISCHARGED HOME WITH . ESCORTED TO VEHICLE VIA WHEELCHAIR.
--- NOTE | 2019-04-07 12:56 | MORECARE ---
CASE MANAGEMENT DISCHARGE SUMMARY PATIENT: MARIA TERESA MCKEON JR UNIT: [id number] ADM DATE: 04/03/19 AGE: 78 : 41 SEX: M ROOM/BED: [facility] AUTHOR: ROSELYN,DOC PHYSICIAN: REFERRING PHYSICIAN: ANGELINA CONNORS MD DATE OF SERVICE: 04/07/19 Discharge Plan Patient Name: MARIA TERESA MCKEON Facility: [facility]:[place] : 1940 Planned Disposition: Home Anticipated Discharge Date: Discharge Date: 04/07/2019 Expected LOS: Initial Reviewer: [email or web address] Initial Review Date: 04/06/2019 Generated: 04/07/19 1:56 pm Comments DCP- Discharge Planning Updated by [email or web address]: Greta Aggarwal on 04/07/19 10:[address] Patient Name: MARIA TERESA MCKEON Encounter No: [id number] : 1940 Primary Insurance: MEDICARE A & B Anticipated DC Date: Planned Disposition: External Planned Provider: : Colleen/Virgen IMM signed 04/07/19 @ 1018 DCP follow-up note: Patient and family in agreement with discharge plan. No changes to plan. Case management will follow and assist as needed. Greta Aggarwal DCP- Discharge Planning Updated by [email or web address]: Greta Aggarwal on 04/07/19 10:[address] LATE ENTRY 04/06/19 Patient Name: MARIA TERESA MCKEON Admission Status: Elective Accout number: [id number] Admission Date: 04-03-2019 : 1940 Admission Diagnosis: Attending: ANGELINA CONNORS Current LOS: 4 Anticipated DC Date: Planned Disposition: Primary Insurance: MEDICARE A & B Discharge Planning Comments: CM met with patient at bedside after explaining CM role and obtaining verbal consent. Patient lives at home with his Manisha where he is independent with his care and plans to return there upon discharge. Patient feels this would be a safe discharge. CM discussed availability / needs of home health and medical equipment. Patient denies any discharge needs at this time. Patient states he will have his family drive him home upon discharge. CM will continue to follow and assist as needed with discharge planning / needs. Gyroscopic Engineering Technician: Greta Aggarwal DCPIA - Discharge Planning Initial Assessment Updated by [id number]: Greta Aggarwal on 04/07/19 11:21 am * Is the patient Alert and Oriented? Yes * How many steps to enter\exit or inside your home? * PCP [facility] * [facility] * Preadmission Environment Home with Family * ADLs Independent * Equipment Walker * List name and contact numbers for known caregivers / representatives who currently or will assist patient after discharge: MANISHA MCKEON - - [phone] ROSIBEL MCKEON - DAUGHTER- [phone] * Verbal permission to speak to the caregivers and representatives has been obtained from the patient. Yes * Community resources currently utilized None * Additional services required to return to the preadmission environment? No * Can the patient safely return to the preadmission environment? Yes * Has this patient been hospitalized within the prior 30 days at any hospital? No Coverage Notice Reviewer: [id number] - Greta Aggarwal Notice Issued Date-Time: 04/07/2019 11:28 Notice Type: IM Discharge Notice Notice Delivered To: Patient Relationship to Patient: Self Imcu Nurse Name: Delivery Method: HAND - Hand Delivered Olga Days: Prior Verbal Notification: Recipient Understood Notice: Yes Recipient Signature: Yes Med Rec Note Co-signed by Attending: Coverage Notice Comment: Last DP export: 04/07/19 10:32 Patient Name: MARIA TERESA MCKEON Page [phone] at 1256 All edits/amendments must be made on the electronic document DICTATION DATE: 04/07/19 1256 CITRIX ADMINISTRATOR: ENID 04/07/19 1256 RPT#: [id number] SD DATE:04/07/19 STATUS: DIS IN [facility] [address] [place] [address] END OF REPORT
--- NOTE | 2019-04-13 14:10 | OP ---
PATIENT NAME: MARIA TERESA MCKEON JR MEDICAL RECORD: [id number] :[birth year] LOCATION:[facility].CV03 ADMISSION DATE:04/03/19 SURGEON: JOSÉ MIGUEL THOMAS MD DATE OF OPERATION: 04/03/2019 SURGEON: José Miguel Thomas MD ANESTHESIA: General endotracheal, Dr. Hoover. OPERATION PERFORMED: 1. Left upper lobe resection. 2. Left radical mediastinal lymphadenectomy. 3. Flexible fiberoptic bronchoscopy. 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 INDICATION FOR OPERATION: Carcinoma of the left upper lobe. FINDINGS OF THE OPERATION: Mass, left upper lobe. Large mediastinal lymph nodes anthracotic. ESTIMATED BLOOD LOSS: Less than 200 cc. SPECIMENS: 1. Level 10 lymph node. 2. Left upper lobe. 3. Level 5 lymph nodes. 4. Level 8 lymph nodes. 5. Level 7 lymph nodes. Flexible fiberoptic demonstrated normal tracheobronchial tree. Post-procedure, the left upper lobe stump was secured. After informed consent, adequate preoperative medication evaluation, the patient was brought to the operating room, placed on the table in the supine position. After induction of general endotracheal anesthesia and application of appropriate monitoring devices, the patient was turned in a right lateral decubitus position, protecting the neurological structures and pressure points. The left chest prepped and draped in sterile field, utilizing Betadine scrub, alcohol, and Betadine solution. Betadine-impregnated drape was also used. A small posterolateral thoracotomy incision was made and dissection carried down the fascia. Hemostasis maintained with electrocautery. The fifth interspace was identified and opened. The lung and mediastinum were examined. There were adhesions from the left upper lobe to the mediastinum. These were lysed with electrocautery and Harmonic scalpel. Attention was then turned toward the interspaces and using cryoablation of the intercostal nerves at level of 3, 4, 5, 6, and 7 was performed. Dissection was then carried out around the hilum of the lung. The pulmonary artery was dissected free of surrounding structures as well as in the fissure. The right upper lobe vein was then dissected free of surrounding structures. Utilizing an Endo-[place]INT[place] vascular [place] the arterial stumps were ligated. Attention was then turned toward the vein, which was then ligated. Dissection was carried out around the hilum of the lung and Level 10 OPERATIVE REPORT [id number] MARIA TERESA MCKEON J lymph nodes sent separately as well as with the specimen. The bronchus was dissected down to the takeoff of the upper lobe. A TA 34.8 stapler was used to clamp the bronchus. The lower lobe was inflated without difficulty. The stapler was fired and the left upper lobe removed. Dissection was then carried out utilizing the Harmonic scalpel at level 5, 8, and 7 and nodes sent to pathology. The chest was irrigated with copious amounts of antibiotic solution and normal saline. Two #28 chest tubes were placed, one anteriorly and superiorly and one inferiorly and posteriorly. The chest was again irrigated. Instrument count and sponge count were correct times 2. Chest closed in layers utilizing #2 Vicryl pericostal sutures, #1 Vicryl on the muscle, #1 on the deep subcutaneous tissue and 2-0 Vicryl on the superficial subcutaneous tissues. Skin approximated with 3-0 subcuticular Vicryl. Sterile dressings were applied. The patient turned in a supine position. The patient underwent exchange for the double lumen tube and a single lumen tube placed. The patient underwent flexible fiberoptic bronchoscopy with the above findings. The patient tolerated the procedure well and was transferred to the CV-ICU in satisfactory condition. ADDENDUM: In addition to the procedure, the patient had cryoablation of the intercostal nerves at level III, IV, V, , and VII. TRANSINT:[id number] Voice Confirmation ID: [id number] DOCUMENT ID: [id number] JOSÉ MIGUEL THOMAS MD at 1410 CC: [id number] DICTATION DATE: 04/03/19 1209 TEMPERATURE REGULATOR PYROMETER: 04/03/19 1711 DIS IN 04/07/19 [facility] [address] [id number]
== END 2019-04-07 12:00 | disposition home or self-care (01) | DRG 164 ==
LOC: D.MS 11:30 → D.SDCHOLD 04-03 05:00 → D.MS 04-03 07:30 → D.CVICU 04-03 12:25 → D.SDCHOLD 04-03 15:48 → D.CVICU 04-03 15:49
PROVIDERS: Internal Medicine Nephrology; ADMIT Internal Medicine Cardiovascular Disease; ATTEND Internal Medicine Cardiovascular Disease
PROC: 0BJ08ZZ Inspection of Tracheobronchial Tree, Via Natural or Artificial Opening Endoscopic (ICD-10-PCS; 2019-04-03)
PROC: 0BTG0ZZ Resection of Left Upper Lung Lobe, Open Approach (ICD-10-PCS; principal; 2019-04-03 07:30)
PROC: 07T70ZZ Resection of Thorax Lymphatic, Open Approach (ICD-10-PCS; 2019-04-03 07:30)
DX: C34.12 Malignant neoplasm of upper lobe, left bronchus or lung (principal); N17.9 Acute kidney failure, unspecified; C78.02 Secondary malignant neoplasm of left lung; E87.1 Hypo-osmolality and hyponatremia; J95.812 Postprocedural air leak; D50.9 Iron deficiency anemia, unspecified; E03.9 Hypothyroidism, unspecified; M19.90 Unspecified osteoarthritis, unspecified site; I25.10 Atherosclerotic heart disease of native coronary artery without angina pectoris; E11.9 Type 2 diabetes mellitus without complications; I48.91 Unspecified atrial fibrillation; D53.9 Nutritional anemia, unspecified; I48.0 Paroxysmal atrial fibrillation

== ENCOUNTER → 2019-04-09 11:23 | Outpatient (CLI) | payer MEDICARE, OTHER ==
[2019-04-04 11:22] VITALS: BMI 24.4
[~2019-04-09 11:23] MED LIST changes: +LUPRON INJ; +MARINOL2.5 MG PO; +PERCOCET 10-321 EAC1 PO
== END | disposition home or self-care (01) ==
LOC: D.RAD 11:23
PROVIDERS: ATTEND Internal Medicine Cardiovascular Disease
DX: R07.81 Pleurodynia (principal)

== ENCOUNTER → 2019-09-14 10:44 | Outpatient (CLI) | payer MEDICARE, OTHER ==
[2019-04-04 11:22] VITALS: BMI 24.4
== END | disposition home or self-care (01) ==
LOC: D.CT 10:44
PROVIDERS: ATTEND Internal Medicine Hematology & Oncology
DX: C34.11 Malignant neoplasm of upper lobe, right bronchus or lung (principal); C61 Malignant neoplasm of prostate

== ENCOUNTER → 2019-11-02 11:06 | Outpatient (CLI) | payer MEDICARE, OTHER ==
[2019-04-04 11:22] VITALS: BMI 24.4
== END | disposition home or self-care (01) ==
LOC: D.CT 11:06
PROVIDERS: ATTEND Internal Medicine Hematology & Oncology
DX: C34.91 Malignant neoplasm of unspecified part of right bronchus or lung (principal); C61 Malignant neoplasm of prostate; I48.4 Atypical atrial flutter; E03.9 Hypothyroidism, unspecified

== ENCOUNTER → 2019-12-01 11:17 | Outpatient (CLI) | payer MEDICARE, OTHER ==
[2019-04-04 11:22] VITALS: BMI 24.4
--- NOTE | ~2019-12-01 | EC ---
PATIENT:MARIA TERESA MCKEON JR DATE OF SERVICE: 12/01/19 SEX: M MEDICAL RECORD: [id number] DATE OF : [birth year] LOCATION:D[facility] AGE OF PATIENT: 79 ADMISSION DATE: 12/01/19 REFERRING PHYSICIAN: INTERPRETING PHYSICIAN: JORGE EL MD ECHOCARDIOGRAM REPORT ECHO CHARGES 4 ECHO COMPLETE Date: 12/01/19 CLINICAL DIAGNOSIS: AFIB/CARDIOMYOPATHY/ASSESS EF MITRAL/TRICUSPID REGURG ECHOCARDIOGRAPHIC MEASUREMENTS (adult normal given) AC root (d.<3.7cm) 4.8 cm LV Septum d (<1.2 cm> 1.2 cm Valve Excursion 1.6 cm LV Septum (systole) 1.4 cm Left Atria (s.<4.0cm> 4.3 cm LVPW d(<1.2cm) 1.5 cm RV (d.<2.3cm) 3.7 cm LVPW (sytole) 1.6 cm LV diastole(<5.6CM) 5.2 cm MV E-F(>70mm/sec) cm LV systole 3.9 cm LVOT Diameter 1.9 cm MV exc.(>10mm) cm Est.ejection fraction (50-75%) % DOPPLER: LVIT cm/sec A 151.0cm/sec E 77.0 cm/sec LA cm/sec RVSP 29 mmHg LVOT 120 cm/sec AOP1/2T m/s Asc. Ao 147 cm/sec RVOT 73 cm/sec RA cm/sec PA 118 cm/sec AV Gradient Peak 8.66 mmHg AV Mean 4.27 mmHg AV Area 2.7 cm MV Gradient Peak 8.80 mmHg MV Mean 3.02 mmHg MV Area cm COMMENTS: Occupational Health Technician: 2 RAVI SCHAFER Lost And Found Clerk: 3 Dr. Sheehan TAPE# PACS Pericardial Effusion N DATE OF SERVICE: Adequate 2D, color flow imaging, spectral Doppler, and M-Mode. LVH is present. LV internal dimension is normal. Wall motion is normal. EF is greater than or equal to 55%. Aortic valve is sclerosed without evidence of stenosis by Doppler interrogation. Left atrium is normal 4.3 cm. Mitral valve shows no prolapse. Trace MR. Right-sided chambers are grossly normal. Mild TR. Incidental note is made of pacemaker lead in the RV apex. TRANSINT:[id number] Voice Confirmation ID: [id number] DOCUMENT ID: [id number] ECHOCARDIOGRAM REPORT [id number] MARIA TERESA MCKEON GREGORY A MD CC: [id number] DICTATION DATE: 12/03/191541 CREDIT SUPPORT SPECIALIST: 12/03/192049 DEP CLI 12/01/19 [address] [address] [id number] [place] [id number]
== END | disposition home or self-care (01) ==
LOC: D.HCCECHO 11:17
PROVIDERS: ATTEND Internal Medicine Interventional Cardiology
DX: I48.91 Unspecified atrial fibrillation (principal)

== ENCOUNTER → 2020-09-30 14:18 | Outpatient (CLI) | payer MEDICARE, OTHER ==
[2020-02-08 10:50] VITALS: BMI 22.6
[~2020-09-30 14:18] MED LIST changes: +COREG 3.1253.125 MG PO
== END | disposition home or self-care (01) ==
LOC: D.LAB 14:18
PROVIDERS: ATTEND Internal Medicine Pulmonary Disease
DX: Z11.52 Encounter for screening for COVID-19 (principal)

== ENCOUNTER → 2020-10-06 14:07 | Outpatient (CLI) | payer MEDICARE, OTHER ==
[2020-02-08 10:50] VITALS: BMI 22.6
== END | disposition home or self-care (01) ==
LOC: D.RT 14:00
PROVIDERS: ATTEND Internal Medicine Pulmonary Disease
DX: J84.10 Pulmonary fibrosis, unspecified (principal)